=== PATIENT | female | born 1970 | race Caucasian/White ===

== ENCOUNTER 2020-01-09 09:40 | Outpatient (REF) | payer MEDICAID, SELFPAY | END 2020-01-09 09:41 | disposition home or self-care (01) | LOC: HO.LAB 09:40 | PROVIDERS: Visit Provider Internal Medicine | DX: Z20.828 Contact with and (suspected) exposure to other viral communicable diseases (principal) | CPT/HCPCS: U0003 ==

== ENCOUNTER 2020-04-03 17:02 | Outpatient (REF) | payer OTHER, SELFPAY | END 2020-04-03 17:03 | disposition home or self-care (01) | LOC: HO.LAB 17:02 | PROVIDERS: Visit Provider Internal Medicine | DX: Z20.822 Contact with and (suspected) exposure to COVID-19 (principal) | CPT/HCPCS: 36415; C9803; U0003 ==

== ENCOUNTER 2020-07-16 12:00 | Outpatient (REF) | payer OTHER, SELFPAY ==
[2020-07-16 12:19] LABS: COVID-19 Test Negative (Negative)
== END 2020-07-16 12:01 | disposition home or self-care (01) ==
LOC: HO.LAB 12:00
PROVIDERS: Visit Provider Internal Medicine
DX: Z20.822 Contact with and (suspected) exposure to COVID-19 (principal)
CPT/HCPCS: 36415; 87635; C9803

== ENCOUNTER 2020-08-08 13:23 | Emergency (ER) | payer SELFPAY ==
[2020-08-08 15:05] VITALS: BP 133/73; PULSE 71; RESP 16; TEMP 36.8; O2SAT 98; BMI 33.3
--- NOTE | 2020-08-08 15:16 | PC.NURSE ---
CALLED, NOT IN [facility].
--- NOTE | 2020-08-08 15:36 | ED_ITS ---
HPI - General Adult General Chief complaint: Skin/Abscess/Foreign Body Stated complaint: BREAST PAIN Time Seen by Provider: 08/08/20 15:15 Source: patient Limitations: no limitations History of Present Illness HPI narrative: Patient states her left breast increasing tenderness and pain above her left nipple. Patient states about a month and half ago she pressed on the same year and got pus out at that time. Patient states the pain is about 4/10 at this time. No discharge at this time. Patient states approximately about a year ago she felt a lump in her breast that was different had a mammogram that was negative. Patient has had history of tobacco use for the vaccinated for COVID-19 no other complaints at this time. No history of diabetes Related Data Previous Rx's Medication Instructions Recorded cephalexin 500 mg PO TID #30 cap 08/08/20 minocycline 100 mg PO BID #20 cap 08/08/20 Allergies Allergy/AdvReac Type Severity Reaction Status Date / Time No Known Allergies Allergy Verified 08/08/20 15:05 Review of Systems Constitutional: Constitutional: Denies chills, Denies fever(s) and Denies night sweats ENT: Denies sore throat Cardiovascular: Cardiovascular: Denies chest pain and Denies dyspnea Respiratory: Respiratory: Denies dyspnea Gastrointestinal: Gastrointestinal: Denies nausea and Denies vomiting Musculoskeletal: Musculoskeletal: Reports no additional musculoskeletal complaints Integumentary/Breasts: Skin/Breast: Reports swelling Comments: Left breast pain Neurologic: Reports system reviewed and no additional complaints, except as documented Endocrine: Endocrine: Reports no additional endocrine complaints Allergic/Immunologic: Allergic/Immunologic: Denies urticaria PMFSH Past Medical History Attestation statement: The following information was validated with the patient. Medical History Patient denies medical problems Social History Social History Advance Directives: Yes Advance Directives Information Provided: Yes Advance Directives on File: No Patient : No Physical Exam Vital Signs: Vital Signs: Last Vital Signs Temp 98.3 F 08/08/20 15:05 Pulse 71 08/08/20 15:05 Resp 16 08/08/20 15:05 BP 133/73 08/08/20 15:05 Pulse Ox 98 08/08/20 15:05 Body Mass Index 33.3 vital signs have been reviewed as normal and appeared to be correct. Blood pressure normal. Heart rate normal. Respiration rate normal. Temperature normal. Oxygen saturation normal. Appearance: Alert. Oriented X3. No acute distress. Head: Normal external exam. Normocephalic. Atraumatic. No Steward signs noted. No raccoon eyes noted Eyes: PERRLA. EOMI. ENT: Pharynx normal. Uvula midline. CVS: Heart regular rate and rhythm no murmurs and rubs Respiratory: Breath sounds are clear to auscultation bilaterally. No accessory muscle use noted. Abdomen: Soft nontender no rebound or guarding positive bowel sounds Skin: Left breast is tender slightly indurated above the left nipple. No pur ulent discharge at this time Extremities: No lower extremity edema. Extremities exhibit normal range of motion. Patient is ambulatory Neuro: Oriented X 3. No motor deficit. No sensory deficit. Course Course Course Narrative: Differential diagnosis Left breast non lactate mastitis Left breast abscess Cellulitis Left breast pain Symptoms consistent with mastitis versus cellulitis or abscess will treat with antibiotics at this time Case discussed with Dr. Wilde will start on antibiotics warm compresses follow- up with surgeon would not I and D at this time Discharge Plan Discharge Clinical Impression: Cellulitis, Mastitis Patient Disposition: Home, Self-Care Instructions: Mastitis (ED) Additional Instructions: Warm compresses 2 to 3 times a day Antibiotics as directed Call surgeon for follow-up Prescriptions: New minocycline 100 mg capsule 100 mg PO BID Qty: 20 RF: 0 cephalexin 500 mg capsule 500 mg PO TID Qty: 30 RF: 0 Referrals: Kandice Keating MD [Physician] - 2 days
== END 2020-08-08 16:02 | disposition home or self-care (01) ==
PROVIDERS: Emergency Provider Emergency Medicine
DX: N61.0 Mastitis without abscess (principal); N64.4 Mastodynia; Z79.899 Other long term (current) drug therapy
CPT/HCPCS: 99283

== ENCOUNTER 2021-04-14 09:57 | Outpatient (REF) | payer MEDICAID, SELFPAY ==
--- NOTE | ~2021-04-14 | MM_ITS ---
EXAMINATION: MM DIAGNOSTIC DIGITAL BREAST TOMOSYNTHESIS, BILATERAL US DIAGNOSTIC ULTRASOUND BREAST, LEFT CLINICAL INFORMATION: Left breast infection medial periareolar region with erythema. Patient on day 6 antibiotics, 10 day course. No known family history breast cancer. The lifetime risk of breast cancer based on the Tyrer-Cuzick Model is 8%. COMPARISON: Mammography: 04/14/2021, 08/11/2018 (diagnostic baseline); bilateral targeted breast ultrasound 08/11/2018. TECHNIQUE: Digital breast tomosynthesis is performed in both the craniocaudal and mediolateral oblique views along with computer-aided detection (CAD). Synthesized 2D images are generated from the tomosynthesis. Additional views are obtained: Left CC, right MLO. Ultrasound left breast is targeted to the area of clinical concern anterior o'clock through 12:00 position. Grayscale imaging and color Doppler are performed without and with harmonics. FINDINGS: There are scattered areas of fibroglandular density (ACR BI-RADS breast composition Category b). The right breast is unremarkable. There is no interval mass or architectural abnormality or abnormal calcifications. Intramammary node is again seen mid upper outer quadrant similar to prior imaging. The left breast has smooth dermal thickening in the area of symptoms medial periareolar region. There is no duct ectasia or mass or gas tracking in the soft tissues. No abnormal calcifications. The bilateral axilla are unremarkable. Ultrasound left breast demonstrates an intradermal abscess at site of erythema medial periareolar breast with overall dimensions 0.6 cm thickness by 3.4 x 3.1 cm. There is a 0.5 cm projection from the deep dermis pointing towards the breast. Otherwise, no injury parenchymal abscess. There is hyperemia around the intradermal collection with smooth skin thickening. Results are discussed with the patient at time of visit. Patient notes improved symptoms while on antibiotics, currently date 6 of a 10 day course. She has upcoming appointment with surgeon for follow-up. MM/MM tomosynthesis diagnostic BI IMPRESSION: 1. Left: Intradermal abscess medial periareolar position corresponding to the site of erythema measuring 0.6 cm thickness by 3.4 x 3.1 cm. 2. Right: No mammographic evidence of malignancy. ASSESSMENT: BI-RADS 3: Probably Benign RECOMMENDATION: 1. Patient should continue with antibiotics as planned. 2. Patient to follow-up with her surgical consult appointment. 3. Patient should be managed based on the clinical impression. Follow-up ultrasound may be considered if symptoms are persistent or increasing. Today's ultrasound may serve as baseline for follow-up as needed. This patient's information was entered into a reminder system with a target due date for their next mammogram.
== END 2021-04-14 09:58 | disposition home or self-care (01) ==
LOC: HO.MAMMO 09:57
PROVIDERS: Visit Provider Family Medicine
DX: N63.24 Unspecified lump in the left breast, lower inner quadrant (principal); R92.8 Other abnormal and inconclusive findings on diagnostic imaging of breast
CPT/HCPCS: 76642; 77062; 77066

== ENCOUNTER → 2021-04-25 09:01 | Outpatient (BNVA) | payer MEDICAID, SELFPAY | PROVIDERS: PCP Internal Medicine; Referring Provider Internal Medicine; Visit Provider Surgery | DX: N61.0 Mastitis without abscess (principal) | CPT/HCPCS: 99202 ==

== ENCOUNTER 2021-05-15 11:43 | Outpatient (REF) | payer MEDICAID, SELFPAY ==
--- NOTE | ~2021-05-15 | XR_ITS ---
EXAMINATION: XR SHOULDER, RIGHT CLINICAL INFORMATION: Right shoulder pain. COMPARISON: None TECHNIQUE: AP external rotation, Grashey, scapular Y, and axillary views of the right shoulder. FINDINGS: Small acromioclavicular marginal osteophytes. Small lateral subacromial spurs. No glenohumeral joint space narrowing or marginal osteophytes. No osseous erosion. No fracture or dislocation. XR/XR shoulder RT min 2V IMPRESSION: Mild acromioclavicular osteoarthritis with small lateral subacromial spurs.
== END 2021-05-15 11:44 | disposition home or self-care (01) ==
LOC: HO.XRAY 11:43
PROVIDERS: PCP Internal Medicine; Visit Provider Internal Medicine
DX: M25.511 Pain in right shoulder (principal)
CPT/HCPCS: 73030

== ENCOUNTER → 2021-06-19 10:54 | Outpatient (BNVA) | payer MEDICAID, SELFPAY | PROVIDERS: PCP Internal Medicine; Visit Provider Physician Assistant | DX: M77.8 Other enthesopathies, not elsewhere classified (principal) | CPT/HCPCS: 99202 ==

== ENCOUNTER → 2021-07-29 09:51 | Outpatient (BNVA) | payer MEDICAID, SELFPAY | PROVIDERS: PCP Internal Medicine; Visit Provider Surgery | DX: N64.89 Other specified disorders of breast (principal); N61.0 Mastitis without abscess | CPT/HCPCS: 99212 ==

== ENCOUNTER 2021-08-18 09:20 | Day surgery (SDC) | payer MEDICAID, SELFPAY ==
[2021-08-12 10:26] VITALS: BMI 38.6
--- NOTE | 2021-08-15 09:20 | HO.ANESPROP2 ---
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 (Acute) Past Medical History Medical History Patient denies medical problems Surgical History Surgical History History of tubal ligation Surgical history unknown Social History Social History Alcohol intake: current Alcohol intake frequency: holidays/special occasions only Patient Tobacco Use Status: Current everyday Tobacco user Tobacco use type: Cigarette Smoked in Last 30 Days: Yes Patient Interested in Nicotine Replacement: No Use of substances other than those prescribed or required for medical reasons: Yes Substance Use Type Other:: pt reports cigarette and marijuana hs Substance Use Frequency: Occasionally Are you DNR?: No Advance Directives: No Advance Directives Information Provided: Yes Recently lost weight without trying: No Eating poorly because of decreased appetite: No Nutrition Risks: No Nutritional Risk Patient : No FDLMP: currently menstruati Current occupational status: employed Current occupation: right handed Meds Allergies Allergy/AdvReac Type Severity Reaction Status Date / Time No Known Allergies Allergy Verified 08/18/21 09:43 Exam Exam Date and Time: August 15, 2021 0920 Height,Weight and Vital Signs: Height 5 ft 5 in Weight 105.233 kg Assessment and Plan Assessment Anesthesia Assessment: Chart Reviewed Documented by User: Ramya Cruz MD 08/18/21 11:39 PMFSH Active Problems Active Problems: All Active Problems (Updated 07/29/21 @ 10:23 by Rei Johnson MD) Mastitis in female (Acute) Right shoulder tendonitis (Acute) 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 (Acute) pending sleep study for JOSEPHINE smoker Past Medical History Medical History Patient denies medical problems Surgical History Surgical History History of tubal ligation Surgical history unknown History of Problems with Anesthesia: No Social History Social History Alcohol intake: current Alcohol intake frequency: holidays/special occasions only Patient Tobacco Use Status: Current everyday Tobacco user Tobacco use type: Cigarette Smoked in Last 30 Days: Yes Patient Interested in Nicotine Replacement: No Use of substances other than those prescribed or required for medical reasons: Yes Substance Use Type Other:: pt reports cigarette and marijuana hs Substance Use Frequency: Occasionally Are you DNR?: No Advance Directives: No Advance Directives Information Provided: Yes Recently lost weight without trying: No Eating poorly because of decreased appetite: No Nutrition Risks: No Nutritional Risk Patient : No FDLMP: currently menstruati Current occupational status: employed Current occupation: right handed Meds Allergies Allergy/AdvReac Type Severity Reaction Status Date / Time No Known Allergies Allergy Verified 08/18/21 09:43 Exam Airway Mallampati Class: III TM Dist: >3cm Neck ROM: Full Loose/Missing/Broken Teeth: No Heart: RRR Lungs: CTA Assessment and Plan Assessment Anesthesia Assessment: Anesthesia Plan Discussed Final Anesthetic Review History of Problems with Anesthesia: No NPO: Yes ASA Class: III Final Preanesthetic Review: Meds/Allgs Chart Reviewed, Consent Obtained/Reviewed and Anes Risks/Benef Reviewed Patient Risk: Intermediate Procedure Risk: Low Anesthetic Plan Anesthetic Plan: GA Disposition: Standard PACU
[2021-08-18] VITALS (8 sets, daily range): BP systolic 103–148; BP diastolic 62–96; PULSE 71–87; RESP 16–18; TEMP 36.1–36.2; O2SAT 93–97; BMI 38.2
[2021-08-18 09:47] LABS: UPreg QC Valid YES; Urine Pregnancy NEGATIVE (NEGATIVE)
[2021-08-18] MEDS: Lactated Ringers 1,000 ML 100 ML IVCONT (10:04)
[2021-08-18] MEDS: Albuterol Sulfate (0.083%) 2.5 MG/3 ML VIAL.NEB INHALE (10:06)
--- NOTE | 2021-08-18 10:46 | MHC.SHP ---
Pre-Procedural Eval Section A Date of Service: 08/18/21 The patient is an INPATIENT: No Changes since office visit: Yes Patient answered all questions; No Cold of Flu in the past 2 weeks, No New Medical Problems and No Changes in Medication The History & Physical has been completed within 30 days and I have reviewed it.: Yes Section B Chief Complaint: breast lump Allergies: Allergies Allergy/AdvReac Type Severity Reaction Status Date / Time No Known Allergies Allergy Verified 08/18/21 09:43 Plan Diagnosis/Plan: Unchanged I have reviewed the history and physical and performed a pertinent physical examination on my patient. No changes have occurred unless specified.
--- NOTE | 2021-08-18 11:18 | W.PM.OPN ---
Operative Note Operative Note Date of Service: 08/18/21 Narrative: Preoperative diagnosis:Left breast mass Postoperative diagnosis:same Procedure:Left breast lumpectomy Surgeon: Rei Johnson MD [employer] Operator: Yasmine Barrera PA-C, VIDHYA Brown Anesthesia: General LMA Indications for procedure: 50-year-old female patient with persistent and recurring infections involving the left nipple areolar complex. Patient has an area in the 10 o'clock position which produces purulence discharge. There is a palpable lump radiating from the nipple to the 10 o'clock position below the areola suggestive of a lactiferous duct fistula. 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 After administering general anesthesia patient's left breast was prepped with ChloraPrep and draped in a sterile fashion. A surgical time-out was called the consent confirmed. Patient received preoperative antibiotics and Venodyne boots were in place. Local anesthesia consisting of 0.25% Sensorcaine was then infiltrated around the nipple-areolar complex at the 9 through 12 o'clock position. An elliptical incision oriented around the areola was then created with scalpel. This was carried out through subcutaneous tissue. Superior and inferior skin flaps were then created. The lesion was then excised off the nipple-areolar complex using a scalpel. Dissection was continued below the fistula in the subcutaneous tissue and breast tissue using electrocautery. Lesion was then dissected up to the undersurface of the nipple. This was then dissected with a hemostat divided and ligated with a 3-0 Polysorb suture. The remainder of the specimen was then excised using electrocautery. This was sent to pathology for further examination. Margins were marked with a long suture on the lateral, nipple margin. Short suture was placed in the superior margin and a loop suture was placed on the anterior margin. The wounds were then irrigated with saline solution and suctioned dry. Wounds were checked for hemostasis using electrocautery. Dermis was then reapproximated using interrupted 3-0 Polysorb sutures. Skin was closed using a running subcuticular 4-0 Polysorb suture. Steri-Strips, 2 x 2 gauze, and Tegaderm were then applied. Patient tolerated the procedure well. Sponge, instrument, and needle counts reported as correct. The patient was transferred to PACU in stable condition.
[2021-08-18] MEDS: Acetaminophen 325 MG TABLET 650 MG PO (13:57)
[2021-08-18] MEDS: oxyCODONE HCl Immed Release 5 MG TABLET PO (13:58)
== END 2021-08-18 14:15 | disposition home or self-care (01) ==
PROVIDERS: Nurse Practitioner; PCP Internal Medicine; Visit Provider Surgery
PROC: (CPT 19301; principal; 2021-08-18 10:40)
DX: N61.1 Abscess of the breast and nipple (principal); N64.0 Fissure and fistula of nipple; Z98.51 Tubal ligation status; F17.210 Nicotine dependence, cigarettes, uncomplicated
CPT/HCPCS: 19301; 81025; 88307; 94640; J0690; J2250; J2795; J3010

== ENCOUNTER → 2021-12-02 09:54 | Outpatient (BNVA) | payer MEDICAID, SELFPAY | PROVIDERS: PCP Internal Medicine; Visit Provider Surgery | DX: N61.0 Mastitis without abscess (principal); N64.89 Other specified disorders of breast | CPT/HCPCS: 99212 ==

== ENCOUNTER 2022-03-17 11:23 | Inpatient (IN) | payer MEDICAID, SELFPAY ==
[2022-03-17] VITALS (8 sets, daily range): BP systolic 119–155; BP diastolic 61–81; PULSE 72–106; RESP 16–22; TEMP 36.2–37; O2SAT 84–95; BMI 37.4
--- NOTE | ~2022-03-17 | CT_ITS ---
EXAMINATION: CT ANGIOGRAM OF THE CHEST WITH AND WITHOUT CONTRAST (CT PULMONARY ANGIOGRAM FOR PE) CLINICAL INFORMATION: Reason for Exam hypoxia, elevated ddimer COMPARISON: Chest radiograph earlier today TECHNIQUE: Prior to contrast administration, noncontrast localization images were obtained. Subsequently, multidetector volumetric imaging was performed from the thoracic inlet to below the diaphragms following the administration of 65 mL Omnipaque 350 intravenous contrast. No contrast reaction reported Sagittal, coronal, and MIP oblique sagittal reformatted images were obtained on the CT workstation, uploaded to PACS, and reviewed. This CT examination was performed using dose optimization techniques as appropriate, variously including the following: *Automated exposure control *Adjustment of mA and/or kV according to patient size (this includes techniques or standardized protocols for targeted exams where dose is matched to indication/reason for exam; i.e. extremities or head) *Use of iterative reconstruction technique Total exam dose-length product 549 mGy-cm FINDINGS: QUALITY OF STUDY/CONTRAST BOLUS: Suboptimal. The bolus is poor and there is marked motion artifact especially at the lung bases making diagnosis extremely difficult PULMONARY ARTERIES: No central or large proximal pulmonary emboli. Distal vasculature could not be adequately evaluated THORACIC AORTA: No aneurysm or dissection. LUNG: Multifocal patchy peripheral infiltrates are present, some groundglass. PLEURA: No pleural effusion or pneumothorax. MEDIASTINUM: Mild cardiac enlargement. No pericardial effusion. Prominent mediastinal and hilar lymph nodes, the largest measuring 1.2 cm in short axis dimension but no gross hilar or mediastinal lymphadenopathy. No evidence of septal bowing or right heart strain. CHEST WALL/AXILLA: No axillary or internal mammary lymphadenopathy. OSSEOUS STRUCTURES: No acute or suspicious osseous abnormality. UPPER ABDOMEN: Unremarkable. No reflux of contrast into the hepatic veins to suggest elevated right heart pressures. CT/CT angio chest PE protocol IMPRESSION: 1. No central or large proximal pulmonary emboli are seen. 2. Multifocal peripheral patchy infiltrates which can be seen with Covid 19 disease. VTE: indeterminate.
--- NOTE | ~2022-03-17 | XR_ITS ---
EXAMINATION: XR CHEST CLINICAL INFORMATION: Shortness of breath COMPARISON: None TECHNIQUE: Frontal view of the chest was obtained. FINDINGS: No significant abnormality is noted involving the heart, lungs, mediastinum, bony thorax or soft tissues. XR/XR chest 1V IMPRESSION: Unremarkable examination.
--- NOTE | 2022-03-17 11:26 | ED.SOB ---
HPI - SOB/Dyspnea General Chief Complaint: Upper Respiratory Symptoms Stated Complaint: SOB Time Seen by Provider: 03/17/22 11:30 Source: patient Mode of arrival: ambulatory Limitations: no limitations History of Present Illness HPI Narrative: 51 yo female with history of obesity, active smoker who presents to the ER with worsening SOB for the last 4 days. She states since the weekend she has had productive cough, fevers and generally not feeling well. Last night it got acutely worse and she had a hard time sleeping. She went to [facility] as a walk in where she was found to be hypoxic into the 70s per her report. They placed her on O2 and gave her steroids. She had a negative COVID test. She was encouraged to come to the ER via EMS but she left against medical advise and drove to the ER. Patient denies any known lung pathology, she is not on any inhalers at home. She states she has never had PFTs. She has been a long-time smoker. MD elicited complaint: shortness of breath and cough Onset (ago): day(s) (4) Context: recent illness Timing: progressively worsening Severity: moderate Associated symptoms: fever, cough and sputum production Treatment prior to arrival: oxygen and other (prednisone) Related Data Home oxygen amount: none Home Medications Medication Instructions Recorded Confirmed metformin 500 mg tablet 1 tab PO BID 03/17/22 03/17/22 minocycline 100 mg capsule 1 cap PO Q12H 03/17/22 03/17/22 Allergies Allergy/AdvReac Type Severity Reaction Status Date / Time No Known Allergies Allergy Verified 12/02/21 10:09 Review of Systems Review of Systems: Yes all other systems are reviewed and are negative PMFSH Past Medical History Medical History Patient denies medical problems Surgical History History of lumpectomy of left breast (08/18/21) History of tubal ligation Surgical history unknown Social History Social History Alcohol intake: current Alcohol intake frequency: holidays/special occasions only Patient Tobacco Use Status: Current everyday Tobacco user Tobacco use type: Cigarette Smoked in Last 30 Days: Yes Advance Directives: No Current occupational status: employed Current occupation: right handed Physical Exam Vital Signs: Vital Signs: Last Vital Signs Temp 98 F 03/17/22 11:25 Pulse 93 03/17/22 13:07 Resp 16 03/17/22 13:07 BP 119/61 03/17/22 11:53 Pulse Ox 84 L 03/17/22 11:53 O2 Del Method 03/17/22 11:53 O2 Flow Rate 4 03/17/22 11:53 BMI result Body Mass Index 37.4 Appearance: Alert. Oriented X3. Mild acute respiratory distress. Eyes: Pupils equal, round and reactive to light. ENT: Pharynx normal. Neck: Normal inspection. Neck supple. CVS: Tachycardic low 100s, regular rhythm Pulses normal. Respiratory: Mild respiratory distress. Breath sounds diminished at bilateral bases with slight end expiratory wheeze in the RML Abdomen: Obese, Soft and nontender. +BS x4 Skin: Skin warm and dry. Normal skin color. Normal skin turgor. No rashes. Extremities: No lower extremity edema. Negative Kailyn's sign, no calf tenderness or erythema Neuro: Oriented X 3. No motor deficit. No sensory deficit. Nonfocal Course Course Course Narrative: 51 yo female who is an active smoker with no known lung disease presents to the ER with worsening SOB, productive cough, fevers and not feeling well for the last 4 days. Seen at [facility] where she was hypoxic into the 70s, she was placed on O2 and given prednisone. She was encouraged to come to the ER via EMS but left against medical advise to come to the hospital to get an XR. Hypoxic 81-85% in triage. Slight expiratory wheeze in right base. XR and labs ordered. Brought right back to treatment room. Reevaluation(s) Reevaluation #1: Patient requiring 4 L of oxygen, sats 94%. She remains afebrile and hemodynamically stable. Her labs returning with a WBC 12.9. H&H is stable. No other metabolic derangements on her lab workup. EKG without STEMI. Chest x-ray reviewed, she has blunting of the bilateral costophrenic angles and hazy opacities bilaterally. Will cover with azithromycin and Rocephin for possible community-acquired pneumonia. Reevaluation #2: Viral swabs are is pending. Procalcitonin ordered as well as lactic acid and blood cultures. Will plan for admission. She remains on 4 L nasal cannula. Patient agrees with plan. Medications Administered Discontinued Medications Generic Name Dose Route Start Last Admin Trade Name Iona PRN Reason Stop Dose Admin Albuterol Sulfate 5 mg 03/17/22 13:03 03/17/22 13:09 Albuterol Sulfate (0.083%) 2.5 Mg/3 Ml Vial.Neb INHALE 03/17/22 13:04 Not Given ONCE ONE Sodium Chloride 1,000 mls @ 999 mls/hr 03/17/22 11:45 03/17/22 11:52 Ns IVCONT 03/17/22 12:45 999 mls/hr .Q1H1M YURIDIA Administration Ceftriaxone Sodium 1 gm/ 50 mls @ 100 mls/hr 03/17/22 12:26 03/17/22 13:23 Sodium Chloride IV 03/17/22 12:55 Infused ONCE ONE Infusion Azithromycin 500 mg/ Sodium 250 mls @ 125 mls/hr 03/17/22 12:26 03/17/22 13:23 Chloride IV 03/17/22 14:25 125 mls/hr ONCE ONE Administration Methylprednisolone Sodium Succinate 40 mg 03/17/22 12:26 03/17/22 12:40 Methylprednisolone Sod Succ 40 Mg/Ml Vial IVPUSH 03/17/22 12:27 40 mg ONCE ONE Administration Medical Decision Making Medical Decision Making [facility] Narrative: 51-year-old long-time cigarette smoker who presents to the ER for evaluation of worsening shortness of breath and productive cough. She rides to the ER hypoxic. Concern for possible viral process versus bacterial pneumonia. She has diminished lung sounds bibasilarly. Chest x-ray, labs, EKG ordered. Doubt PE or ACS given her URI symptoms. Differential Diagnosis Differential Diagnoses: The differential diagnosis associated with the presentation includes Acute bacterial pneumonia, viral pneumonia, bronchitis, COPD exacerbation (most likely has undiagnosed COPD given history), less likely PE or ACS Admission/Observation Consideration of admission/observation: Escalation of care including admission/observation considered Patient continues require supplemental oxygen, will require admission to the hospital for further management. Consult Healthcare Provider Management of the patient was discussed with: Hospitalist Lab Data [facility] Lab Attestation statement: I reviewed the patient's lab results. Independently reviewed, mild leukocytosis, normal H&H, platelets. No major metabolic derangements on her metabolic panel. 03/17/22 11:49 03/17/22 11:49 Labs: Lab Results 03/17/22 03/17/22 03/17/22 Range/Units 11:49 11:49 11:49 WBC 12.9 H (4.8-10.8) X10*3/uL RBC 5.22 (4.20-5.50) X10*6/uL Hgb 14.9 (12.0-16.0) g/dl Hct 46.0 (37.0-47.0) % MCV 88.1 (80.0-98.0) fL MCH 28.5 (27.0-33.0) pg MCHC 32.4 (31.0-35.0) g/dl RDW 13.4 (11.0-16.0) % Plt Count 193 (160-400) X10*3/uL MPV 11.6 (9.4-12.3) fL Immature Gran % (Auto) 0.3 (0.0-0.4) % Neut % (Auto) 80.3 H (45-73) % Lymph % (Auto) 9.7 L (20-40) % [place] % (Auto) 3.9 (2-11) % Eos % (Auto) 5.6 H (0-4) % Baso % (Auto) 0.2 (0-2) % Lymph # (Auto) 1.3 (1.2-4.9) X10*3/uL [place] # (Auto) 0.5 (0.1-1.2) X10*3/uL Eos # (Auto) 0.7 H (0.0-0.4) X10*3/uL Baso # (Auto) 0.0 (0.0-0.2) X10*3/uL Abs Immat Gran (auto) 0.04 H (0.00-0.03) X10*3/uL Absolute Neuts (auto) 10.4 H (2.0-8.3) x10*3/uL Absolute Nucleated RBC 0.000 (0.0-0.012) X10*3/uL Nucleated RBC % (auto) 0.0 (0.0-0.2) /100WBC Sodium 141 (135-145) mmol/L Potassium 4.5 (3.3-5.1) mmol/L Chloride 107 (96-108) mmol/L Carbon Dioxide 25 (22-29) mmol/L Anion Gap 14 (12-20) BUN 21 H (9-16) mg/dL Creatinine 0.78 (0.5-1.4) mg/dL Estim Creat Clear Calc 103.3 Estimated GFR > 60 Random Glucose 123 H (60-115) mg/dL Lactic Acid (0.5-2.0) mmol/L Calcium 9.4 (8.4-10.2) mg/dL Magnesium 1.6 (1.6-2.6) mg/dL Total Bilirubin 0.5 (0.0-1.0) mg/dL Direct Bilirubin 0.2 (0.0-0.5) mg/dL AST 11 (5-31) U/L ALT 14 (0-31) U/L Alkaline Phosphatase 93 (39-117) U/L B-Natriuretic Peptide (<100) pg/mL Total Protein 7.4 (6.5-8.0) g/dL Albumin 4.1 (3.5-5.0) g/dL Procalcitonin ng/mL Influenza Type A (PCR) NEGATIVE (Negative) Influenza Type B (PCR) NEGATIVE (Negative) RSV RNA Qual (PCR) NEGATIVE (Negative) SARS-CoV-2 RNA (RT-PCR) NEGATIVE (Negative) 03/17/22 03/17/22 03/17/22 Range/Units 11:49 11:49 12:36 WBC (4.8-10.8) X10*3/uL RBC (4.20-5.50) X10*6/uL Hgb (12.0-16.0) g/dl Hct (37.0-47.0) % MCV (80.0-98.0) fL MCH (27.0-33.0) pg MCHC (31.0-35.0) g/dl RDW (11.0-16.0) % Plt Count (160-400) X10*3/uL MPV (9.4-12.3) fL Immature Gran % (Auto) (0.0-0.4) % Neut % (Auto) (45-73) % Lymph % (Auto) (20-40) % [place] % (Auto) (2-11) % Eos % (Auto) (0-4) % Baso % (Auto) (0-2) % Lymph # (Auto) (1.2-4.9) X10*3/uL [place] # (Auto) (0.1-1.2) X10*3/uL Eos # (Auto) (0.0-0.4) X10*3/uL Baso # (Auto) (0.0-0.2) X10*3/uL Abs Immat Gran (auto) (0.00-0.03) X10*3/uL Absolute Neuts (auto) (2.0-8.3) x10*3/uL Absolute Nucleated RBC (0.0-0.012) X10*3/uL Nucleated RBC % (auto) (0.0-0.2) /100WBC Sodium (135-145) mmol/L Potassium (3.3-5.1) mmol/L Chloride (96-108) mmol/L Carbon Dioxide (22-29) mmol/L Anion Gap (12-20) BUN (9-16) mg/dL Creatinine (0.5-1.4) mg/dL Estim Creat Clear Calc Estimated GFR Random Glucose (60-115) mg/dL Lactic Acid 0.7 (0.5-2.0) mmol/L Calcium (8.4-10.2) mg/dL Magnesium (1.6-2.6) mg/dL Total Bilirubin (0.0-1.0) mg/dL Direct Bilirubin (0.0-0.5) mg/dL AST (5-31) U/L ALT (0-31) U/L Alkaline Phosphatase (39-117) U/L B-Natriuretic Peptide 90 (<100) pg/mL Total Protein (6.5-8.0) g/dL Albumin (3.5-5.0) g/dL Procalcitonin 0.08 ng/mL Influenza Type A (PCR) (Negative) Influenza Type B (PCR) (Negative) RSV RNA Qual (PCR) (Negative) SARS-CoV-2 RNA (RT-PCR) (Negative) Independent Interpretation I performed an independent interpretation of an: EKG and Plain X-Ray Interpretation: EKG - Normal sinus rhythm, ventricular rate 95 beats per minute, normal OK interval, T-wave inversion in lead 1, aVL, V6 no ST segment elevations or depressions CXR - bibasilar patchy opacity with blunting of costophrenic angles bilaterally Radiology Impression Discussion of test interpretation with radiology: I have reviewed the radiologist's reading. Radiologist Impression: FINDINGS: No significant abnormality is noted involving the heart, lungs, mediastinum, bony thorax or soft tissues. XR/XR chest 1V IMPRESSION: Unremarkable examination. inpendently reviewed - do not agree with the above reading External Record Review External record reviewed: Office record and Prior outpatient labs Tests considered The following testing was considered but not selected: CTA deferred for now Prescription Management I considered prescription management with: Antiviral and Antibiotic Critical Care Time Critical Care Time Critical Care Time: Yes Total Critical Care Time: 42 Attestation: I have personally provided critical care time exclusive of time spent on separately billable procedures. Time includes review of lab data, radiology results, discussion with consultants, and monitoring for potential decompensation. Intervention performed as documented. Discharge Plan Discharge Clinical Impression: Acute respiratory failure with hypoxia, Pneumonia Patient Disposition: Admitted As Inpatient
--- NOTE | 2022-03-17 11:27 | ECG_ITS ---
Test Reason : SOB Blood Pressure : / mmHG Vent. Rate : 095 BPM Atrial Rate : 095 BPM P-R Int : 146 ms QRS Dur : 082 ms QT Int : 370 ms P-R-T Axes : 066 108 113 degrees QTc Int : 464 ms Normal sinus rhythm Rightward axis Nonspecific T wave abnormality Abnormal ECG No previous ECGs available Referred By: Nichole Monzon Electronically Signed By:Bello Pope
[2022-03-17] MEDS: 0.9 % Sodium Chloride 1,000 ML 999 ML IVCONT (11:52)
[2022-03-17 11:54] LABS: MANUAL DIFF FLAG NO
[2022-03-17 11:55] LABS: Basophils Percent Auto 0.2 % (0-2); Eosinophils Absolute Auto 0.7 X10*3/uL (0.0-0.4); Eosinophils Percent Auto 5.6 % (0-4); Hemoglobin 14.9 g/dl (12.0-16.0); Imm Gran Abs Auto 0.04 X10*3/uL (0.00-0.03); Imm Gran Pct Auto 0.3 % (0.0-0.4); Lymphocytes Absolute Auto 1.3 X10*3/uL (1.2-4.9); Lymphocytes Percent Auto 9.7 % (20-40); Mean Corpuscular HGB Conc 32.4 g/dl (31.0-35.0); Mean Corpuscular Hemoglobin 28.5 pg (27.0-33.0); Mean Corpuscular Volume 88.1 fL (80.0-98.0); Mean Platelet Volume 11.6 fL (9.4-12.3); Monocytes Absolute Auto 0.5 X10*3/uL (0.1-1.2); Monocytes Percent Auto 3.9 % (2-11); Neutrophils Absolute Auto 10.4 x10*3/uL (2.0-8.3); Neutrophils Percent Auto 80.3 % (45-73); Platelet Count 193 X10*3/uL (160-400); Red Blood Count 5.22 X10*6/uL (4.20-5.50); Red Cell Distribution Width 13.4 % (11.0-16.0); White Blood Count 12.9 X10*3/uL (4.8-10.8)
--- NOTE | 2022-03-17 12:03 | PC.NURSE ---
Coming from urgent care for increasing shortness of breath. Found to be in the 80's on room air, placed on 4L nasal cannula now 95%. IV established, labs drawn and sent. Fluids infusing at this time. NSR on monitor and storage bin tender.
[2022-03-17 12:17] LABS: Alanine Aminotransferase 14 U/L (0-31); Albumin Level 4.1 g/dL (3.5-5.0); Alkaline Phosphatase 93 U/L (39-117); Anion Gap 14 (12-20); Aspartate Amino Transferase 11 U/L (5-31); Bilirubin Direct 0.2 mg/dL (0.0-0.5); Bilirubin Total 0.5 mg/dL (0.0-1.0); Blood Urea Nitrogen 21 mg/dL (9-16); Calcium 9.4 mg/dL (8.4-10.2); Carbon Dioxide 25 mmol/L (22-29); Chloride 107 mmol/L (96-108); Creatinine Clr Calc Pharmacy 103.3; Estimated Glomerular Filt Rate > 60; Glucose Random 123 mg/dL (60-115); Magnesium 1.6 mg/dL (1.6-2.6); Potassium 4.5 mmol/L (3.3-5.1); Sodium 141 mmol/L (135-145); Total Protein 7.4 g/dL (6.5-8.0)
[2022-03-17 12:22] LABS: B Type Natriuretic Peptide 90 pg/mL (<100)
[2022-03-17 12:33] LABS: Influenza A PCR NEGATIVE (Negative); Influenza B PCR NEGATIVE (Negative); Resp Syncy Virus RNA Qual PCR NEGATIVE (Negative); SARS COV2 PCR INHOUSE NEGATIVE (Negative)
[2022-03-17] MEDS: cefTRIAXone sodium 1 GM in 0.9 % Sodium Chloride 50 ML IV (12:40)
[2022-03-17] MEDS: methylPREDNISolone Sod Succ 40 MG/ML VIAL IVPUSH (12:40)
[2022-03-17 12:58] LABS: Lactic Acid 0.7 mmol/L (0.5-2.0)
--- NOTE | 2022-03-17 12:58 | PHA.MEDREC ---
Pharmacy Consult ? Medication Reconciliation Pharmacy has completed the medication reconciliation. PATIENT CONFIRMS POOR ADHERENCE. STARTED MINOCYCLINE RECENTLY AGAIN JESSICA
[2022-03-17] MEDS: Azithromycin 500 MG in 0.9 % Sodium Chloride 250 ML 125 MG IV (13:23)
[2022-03-17 13:44] LABS: Procalcitonin 0.08 ng/mL
--- NOTE | 2022-03-17 14:10 | PM.IMHP ---
History of Present Illness Date of Service: 03/17/22 Attending physician on admission: Kavin Bowen Chief Complaint: cough, sob, fever 51-year-old female with history of hidradenitis suppurative who is a current everyday smoker with at least 30 pack year history presented to the ED earlier today from [facility] for management of productive cough, subjective fevers, and shortness of breath with hypoxia noted at [facility] with oximetry in the low 70s. She states symptoms started about 4 days ago and worsened last night and this morning. At [facility], she was placed on 4 L supplemental O2 and given a dose of prednisone and transferred via EMS to the hospital. On arrival, patient afebrile, tachycardic to 105 RR 20, hypoxic to 85% on room air. She was placed on 2.5 L supplemental O2 with improvement in oximetry to 92-95%. Lab significant for leukocytosis of 12.9. Renal function, electrolyte levels normal. BNP 90, procalcitonin 0.08. Negative for influenza, RSV, COVID-19. CXR negative for acute cardiopulmoary abnormality. Treated empirically for suspected pneumonia with IV ceftriaxone, Zithromax, albuterol updraft, and 40 mg IV prednisolone. She denies any known history of COPD but feels she has been wheezing. Review of Systems Review of Systems: General: +fevers. No malaise, unintentional weight loss HEENT: No sore throat, nasal congestion, rhinorrhea, sinus pain, ear pain Cardiovascular: No chest pain, palpitations, or leg edema Respiratory: +sob, +cough, +wheezing GI: No abdominal pain, nausea, vomiting, diarrhea, constipation, melena, hematochezia : No dysuria, hematuria, increased urinary frequency, decreased urinary output MSK: No myalgia, back pain Neuro: No headaches, weakness, paresthesias Skin: No rashes or lesions [facility] Medical History (Updated 03/17/22 @ 16:04 by MARK Watters) Hidradenitis suppurativa Mastitis in female Patient denies medical problems Surgical History History of lumpectomy of left breast (08/18/21) History of tubal ligation Surgical history unknown Social History Household Members: None Housing: Apartment Do you presently have visiting nurse or other home services: No Alcohol intake: current Alcohol intake frequency: holidays/special occasions only Patient Tobacco Use Status: Current everyday Tobacco user Tobacco use type: Cigarette Cigarette Packs Per Day: 1 Cigarettes Per Day: 20.0 Years Smoked: 30 Smoked in Last 30 Days: Yes Patient Interested in Nicotine Replacement: Yes Patient Given Instructions on How to Stop Smoking: Yes Date Education Initiated: 03/17/22 Second Hand Smoke Exposure: No Use of substances other than those prescribed or required for medical reasons: Yes Substance Use Type: Marijuana Substance Use Frequency: Daily Last Used Substance: Just Prior to Admission Currently Displaying Signs/Symptoms of Drug Intoxication Withdrawal: No Any prior treatment program specific to substance use: No Have you been hit, kicked, punched, or otherwise hurt by someone within the past year? If so, by whom?: No Do you feel safe in your current relationship?: Yes Is there a partner from a previous relationship who is making you feel unsafe now?: No Are you made to feel afraid or neglected: No Jew Healthcare Practices: caodaism Advance Directives: No Do you have thoughts of harming others: None Do you have a plan to hurt others: No Plan Nutrition Risks: No Nutritional Risk Patient : No : No Poor oral hygiene: No Current occupational status: employed Current occupation: right handed Meds Allergies Allergy/AdvReac Type Severity Reaction Status Date / Time No Known Allergies Allergy Verified 12/02/21 10:09 Active Medications: Current Medications Azithromycin 500 mg/ Sodium (Chloride) 250 mls @ 125 mls/hr IV ONCE ONE Stop: 03/17/22 14:25 Last Admin: 03/17/22 13:23 Dose: 125 mls/hr Pharmacy Consult (Consult Rx Perform Med Rec) 1 each MISCELLANE ONCE PRN PRN Reason: Consult order Home Medications Medication Instructions Recorded Confirmed Last Taken Type metformin 500 mg tablet 1 tab PO BID 03/17/22 03/17/22 03/16/22 History minocycline 100 mg capsule 1 cap PO Q12H 03/17/22 03/17/22 03/16/22 History Physical Exam Vital Signs and Narrative: Vital Signs: Last Vital Signs Temp 98 F 03/17/22 11:25 Pulse 93 03/17/22 13:07 Resp 16 03/17/22 13:07 BP 119/61 03/17/22 11:53 Pulse Ox 84 L 03/17/22 11:53 O2 Del Method 03/17/22 11:53 O2 Flow Rate 4 03/17/22 11:53 BMI result Body Mass Index 37.4 Constitutional - Awake and Alert, No apparent distress Eyes - PERRLA, EOMI Cardiovascular - S1S2, RRR, No edema Respiratory - Normal lung expansion, Normal respiratory effort, No respiratory distress, CTA bilaterally Gastrointestinal - NT / ND; +BS; No rebound or guarding Extremities - no calf tenderness bilaterally, no swelling Skin - Warm/Dry Neurological - Alert & oriented x3 Psychological - Appropriate affect Results Labs 03/17/22 11:49 03/17/22 11:49 Labs: Laboratory Results - last 24 hr 03/17/22 03/17/22 03/17/22 11:49 11:49 11:49 MCV 88.1 MCH 28.5 MCHC 32.4 RDW 13.4 Plt Count 193 MPV 11.6 Immature Gran % (Auto) 0.3 Neut % (Auto) 80.3 H Lymph % (Auto) 9.7 L [place] % (Auto) 3.9 Eos % (Auto) 5.6 H Baso % (Auto) 0.2 Lymph # (Auto) 1.3 [place] # (Auto) 0.5 Eos # (Auto) 0.7 H Baso # (Auto) 0.0 Abs Immat Gran (auto) 0.04 H Absolute Neuts (auto) 10.4 H Absolute Nucleated RBC 0.000 Nucleated RBC % (auto) 0.0 Anion Gap 14 Estim Creat Clear Calc 103.3 Estimated GFR > 60 Random Glucose 123 H Lactic Acid Calcium 9.4 Magnesium 1.6 Total Bilirubin 0.5 Direct Bilirubin 0.2 AST 11 ALT 14 Alkaline Phosphatase 93 B-Natriuretic Peptide Total Protein 7.4 Albumin 4.1 Procalcitonin Influenza Type A (PCR) NEGATIVE Influenza Type B (PCR) NEGATIVE RSV RNA Qual (PCR) NEGATIVE SARS-CoV-2 RNA (RT-PCR) NEGATIVE 03/17/22 03/17/22 03/17/22 11:49 11:49 12:36 MCV MCH MCHC RDW Plt Count MPV Immature Gran % (Auto) Neut % (Auto) Lymph % (Auto) [place] % (Auto) Eos % (Auto) Baso % (Auto) Lymph # (Auto) [place] # (Auto) Eos # (Auto) Baso # (Auto) Abs Immat Gran (auto) Absolute Neuts (auto) Absolute Nucleated RBC Nucleated RBC % (auto) Anion Gap Estim Creat Clear Calc Estimated GFR Random Glucose Lactic Acid 0.7 Calcium Magnesium Total Bilirubin Direct Bilirubin AST ALT Alkaline Phosphatase B-Natriuretic Peptide 90 Total Protein Albumin Procalcitonin 0.08 Influenza Type A (PCR) Influenza Type B (PCR) RSV RNA Qual (PCR) SARS-CoV-2 RNA (RT-PCR) Assessment and Plan (1) Acute respiratory failure with hypoxia: Status: Acute Plan 51-year-old female with history of hidradenitis suppurativa who is a current everyday smoker with at least 30 pack year history admitted for acute hypoxemic respiratory failure. # acute hypoxemic respiratory failure- likely secondary to probable URI with suspected COPD exacerbation -continue supplemental O2 to maintain oximetry greater than 92%, titrate as tolerated -CXR negative for pneumonia -D-dimer elevated, CTA chest negative for PE -negative for COVID-19, influenza, RSV -complete respiratory panel pending #Sepsis- etiology viral or 2/2 COPD exacerbation -leukocytosis 12.9, tachypneic to 22, tachycardic to 105 -IV ceftriaxone and azithromycin given in the ED -CXR negative for pneumonia -CTA chest showing multifocal peripheral patchy infiltrate each often associated with COVID-19 disease. Initial COVID-19 test negative, full respiratory panel pending -treat COPD exacerbation as below -follow CBC, monitor vitals # upper respiratory infection -as above -symptomatic management # suspected COPD exacerbation -patient has never been formally diagnosed with COPD but has been noted to be wheezing with productive cough with greater than 30 pack-year history -IV Solu-Medrol 40 mg b.i.d. -DuoNebs q.4h -albuterol q.2h p.r.n. -continue azithromycin 500 mg to cover for any superimposed bacterial infection #Nicotine dependence ->30 pack year history -Patches for NRT -Counseled on cessation # hidradenitis suppurativa -Abx as above, hold minocycline -Continue metformin #Severe obesity -counseled on weight loss efforts DVT prophylaxis-Lovenox Full code Patient requires inpatient stay of at least 2 midnights for management of acute hypoxemic respiratory failure requiring supplemental O2 with further investigation into etiology. Time Spent With Patient Time: Total time managing care of this patient today ____ minutes. Quality Stroke Does the patient have a stroke diagnosis?: No VTE Prior VTE?: No VTE Risk Level:: Medical - moderate - high VTE Device Contraindication: Treatment Not Indicated VTE Drug Contraindication: N/A - Med Ordered
[2022-03-17] MEDS: Enoxaparin Sodium 40 MG/0.4 ML SYRINGE SUBCUT (16:05)
[2022-03-17] MEDS: 0.9 % Sodium Chloride Flush 3 ML SYRINGE IVFLUSH (16:05)
--- NOTE | 2022-03-17 16:16 | MHC.EDTECH ---
this pct assumed care of pt at this time ,pt vitals sign taken ,pt is resting in bed .
[2022-03-17 16:33] LABS: D Dimer High Sensitivity 583 NG/ML
[2022-03-17] MEDS: Benzonatate 100 MG CAPSULE PO ×2 (16:50→21:22)
[2022-03-17] MEDS: Nicotine 21 MG PATCH.TD24 TRANSDERMA (16:50)
--- NOTE | 2022-03-17 17:48 | PC.NURSE ---
Report called and given to RN. transport into bring patient to CT, will transport to floor when scan done.
[2022-03-17] MEDS: iohexoL 350 MG/ML 100 ML INFUS..BTL IV (18:07)
[2022-03-18] VITALS (13 sets, daily range): BP systolic 113–154; BP diastolic 58–92; PULSE 92–109; RESP 15–20; TEMP 36.1–36.6; O2SAT 92–99
[2022-03-18] MEDS: 0.9 % Sodium Chloride Flush 3 ML SYRINGE IVFLUSH ×3 (01:07→16:44)
[2022-03-18] MEDS: methylPREDNISolone Sod Succ 40 MG/ML VIAL IVPUSH ×2 (05:44→18:30)
[2022-03-18 06:27] LABS: MANUAL DIFF FLAG NO
[2022-03-18 06:31] LABS: Basophils Absolute Auto 0.1 X10*3/uL (0.0-0.2); Basophils Percent Auto 0.5 % (0-2); Eosinophils Absolute Auto 0.8 X10*3/uL (0.0-0.4); Eosinophils Percent Auto 6.8 % (0-4); Hematocrit 45.5 % (37.0-47.0); Hemoglobin 14.2 g/dl (12.0-16.0); Imm Gran Abs Auto 0.03 X10*3/uL (0.00-0.03); Imm Gran Pct Auto 0.2 % (0.0-0.4); Lymphocytes Absolute Auto 2.5 X10*3/uL (1.2-4.9); Mean Corpuscular HGB Conc 31.2 g/dl (31.0-35.0); Mean Corpuscular Hemoglobin 28.2 pg (27.0-33.0); Mean Corpuscular Volume 90.3 fL (80.0-98.0); Mean Platelet Volume 12.2 fL (9.4-12.3); Monocytes Absolute Auto 0.7 X10*3/uL (0.1-1.2); Monocytes Percent Auto 5.9 % (2-11); Neutrophils Absolute Auto 8.3 x10*3/uL (2.0-8.3); Neutrophils Percent Auto 66.6 % (45-73); Platelet Count 230 X10*3/uL (160-400); Red Blood Count 5.04 X10*6/uL (4.20-5.50); Red Cell Distribution Width 13.3 % (11.0-16.0); White Blood Count 12.4 X10*3/uL (4.8-10.8)
[2022-03-18 06:33] LABS: Appearance Urine Clear; Color Urine Yellow; Glucose Urine UA Negative (Negative); Leukocyte Esterase Urine Negative (Negative); Nitrite Urine Negative (Negative); Specific Gravity - Urine 1.025 (1.005-1.025); UMIC TRIGGER UACC YES; Urine Blood Negative (Negative); Urine Ketones Negative (Negative); Urine Protein 30 (1+) mg/dL (Neg-Trace)
[2022-03-18 06:38] LABS: Bacteria Urine None Seen (None Seen); Hyaline Casts Urine 0-2 /LPF (0-2); RBC Urine 0-2 /HPF (0-2); Squamous Epithelial Cell Urine 0-2 /HPF (0-2); WBC Urine 0-5 /HPF (0-5)
[2022-03-18 07:00] LABS: Anion Gap 16 (12-20); Blood Urea Nitrogen 14 mg/dL (9-16); Calcium 9.7 mg/dL (8.4-10.2); Carbon Dioxide 26 mmol/L (22-29); Chloride 107 mmol/L (96-108); Creatinine Clr Calc Pharmacy 111.9; Estimated Glomerular Filt Rate > 60; Glucose Random 114 mg/dL (60-115); Potassium 4.9 mmol/L (3.3-5.1); Sodium 144 mmol/L (135-145)
[2022-03-18 09:19] LABS: Adenovirus PCR Not Detected (Not Detect.); Bordetella parapertussis PCR Not Detected (Not Detect.); Bordetella pertussis PCR Not Detected (Not Detect.); Chlamydia pneumoniae PCR Not Detected (Not Detect.); Coronavirus 229E PCR Not Detected (Not Detect.)
[2022-03-18 09:20] LABS: Coronavirus HKU1 PCR Not Detected (Not Detect.); Coronavirus NL63 PCR Not Detected (Not Detect.); Coronavirus OC43 PCR Not Detected (Not Detect.); Human metapneumovirus PCR Not Detected (Not Detect.); Influenza A PCR Not Detected (Not Detect.); Influenza B PCR Not Detected (Not Detect.); Mycoplasma pneumoniae PCR Not Detected (Not Detect.); Parainfluenza 1 PCR Not Detected (Not Detect.); Parainfluenza 2 PCR Not Detected (Not Detect.); Parainfluenza 3 PCR Not Detected (Not Detect.); Parainfluenza 4 PCR Not Detected (Not Detect.); RSV PCR Not Detected (Not Detect.); Rhino/Enterovirus PCR Not Detected (Not Detect.); SARS-CoV-2 PCR Not Detected (Not Detect.)
[2022-03-18] MEDS: Benzonatate 100 MG CAPSULE PO ×3 (09:21→20:22)
[2022-03-18] MEDS: Nicotine 21 MG PATCH.TD24 TRANSDERMA (09:21)
--- NOTE | 2022-03-18 11:15 | MHC.CM.PN ---
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 ANTIC D/C PLAN: [place] SELF CARE [place] [facility] [place] [address] SELF HOME
--- NOTE | 2022-03-18 11:55 | HO.PM.IMPN ---
Subjective Subjective Date of Service: 03/18/22 Interval History: the patient was seen and evaluated this morning Laying in bed, feels comfortable SOB improving No reported other overnight events. Systemic review: No fever, chills or weakness No chest pain, palpitation dyspnea on exertion No abdominal pain, nausea or vomiting No urinary symptoms No reported rash Physical Exam Vital Signs: Vital Signs: Last Vital Signs Temp 96.9 F 03/18/22 08:00 Pulse 104 H 03/18/22 11:47 Resp 18 03/18/22 11:47 BP 154/77 H 03/18/22 08:00 Pulse Ox 95 03/18/22 10:12 O2 Del Method 03/18/22 10:12 O2 Flow Rate 2 03/18/22 08:00 BMI result Body Mass Index 37.4 Const: Other: Constitutional : Awake, interactive, not in distress Neck : Normal inspection, Supple Cardiovascular : RRR, no JVP, no lower extremity edema Respiratory : fair bilateral air entry, expiratory wheezes bilaterally Gastrointestinal: soft, lax, Normal bowel sounds, Non tender Skin : Warm, Dry Neurological : Alert & oriented x3, No focal deficit Objective Data Active Medications Acetaminophen (Acetaminophen 325 Mg Tablet) 650 mg PO Q6H PRN PRN Reason: Pain, Mild, fever Albuterol Sulfate (Albuterol Sulfate (0.083%) 2.5 Mg/3 Ml Vial.Neb) 2.5 mg INHALE Q2H PRN PRN Reason: Shortness of Breath/Wheezing Benzonatate (Benzonatate 100 Mg Capsule) 100 mg PO TID [facility] Last Admin: 03/18/22 09:21 Dose: 100 mg Documented By: TAVO Albuterol Sulfate 2.5 mg/ (Ipratropium [place] 0.5 mg) 0 mg INHALE RQ4H WHILE AWAKE [facility] Last Admin: 03/18/22 11:46 Dose: 1 each Documented By: DARIUS Docusate Sodium (Docusate Sodium 100 Mg Capsule) 100 mg PO DAILY PRN PRN Reason: Constipation Enoxaparin Sodium (Enoxaparin Sodium 40 Mg/0.4 Ml Syringe) 40 mg SUBCUT Q24H [facility] Last Admin: 03/17/22 16:05 Dose: 40 mg Documented By: ERNST Guaifenesin (Guaifenesin 200 Mg/10 Ml 10 Ml Liquid) 10 ml PO Q4H PRN PRN Reason: cough Azithromycin 500 mg/ Sodium (Chloride) 250 mls @ 125 mls/hr IV Q24H [facility] Stop: 03/19/22 14:59 Methylprednisolone Sodium Succinate (Methylprednisolone Sod Succ 40 Mg/Ml Vial) 40 mg IVPUSH Q12H [facility] Last Admin: 03/18/22 05:44 Dose: 40 mg Documented By: CHRIS Nicotine (Nicotine 21 Mg Patch.Td24) 21 mg TRANSDERMA DAILY [facility] Last Admin: 03/18/22 09:21 Dose: 21 mg Documented By: TAVO Ondansetron HCl (Ondansetron Hcl 4 Mg/2 Ml Vial) 4 mg IVPUSH Q8H PRN PRN Reason: Nausea and Vomiting Pharmacy Consult (Consult Rx Perform Med Rec) 1 each MISCELLANE ONCE PRN PRN Reason: Consult order Sodium Chloride (0.9 % Sodium Chloride Flush 3 Ml Syringe) 3 ml IVFLUSH QSHIFT [facility] Last Admin: 03/18/22 09:22 Dose: 3 ml Documented By: TAVO Labs 03/18/22 05:02 03/18/22 05:02 Labs: Laboratory Results - last 24 hr 03/17/22 03/17/22 03/17/22 11:49 11:49 11:49 MCV 88.1 MCH 28.5 MCHC 32.4 RDW 13.4 Plt Count 193 MPV 11.6 Immature Gran % (Auto) 0.3 Neut % (Auto) 80.3 H Lymph % (Auto) 9.7 L Gillespie % (Auto) 3.9 Eos % (Auto) 5.6 H Baso % (Auto) 0.2 Lymph # (Auto) 1.3 Gillespie # (Auto) 0.5 Eos # (Auto) 0.7 H Baso # (Auto) 0.0 Abs Immat Gran (auto) 0.04 H Absolute Neuts (auto) 10.4 H Absolute Nucleated RBC 0.000 Nucleated RBC % (auto) 0.0 D-Dimer High Sensitivty Anion Gap 14 Estim Creat Clear Calc 103.3 Estimated GFR > 60 Random Glucose 123 H Lactic Acid Calcium 9.4 Magnesium 1.6 Total Bilirubin 0.5 Direct Bilirubin 0.2 AST 11 ALT 14 Alkaline Phosphatase 93 B-Natriuretic Peptide Total Protein 7.4 Albumin 4.1 Procalcitonin Urine Color Urine Appearance Urine pH Ur Specific [place] Urine Protein Urine Glucose (UA) Urine Ketones Urine Blood Urine Nitrite Ur Leukocyte Esterase Urine RBC Urine WBC Ur Squamous Epith Cells Urine Bacteria Hyaline Casts Respiratory Panel Bennett Adenovirus (Rapid PCR) B.pert (TEM-PCR) B.parapertussis DNA PCR C. pneumoniae DNA (PCR) Coronavirus OC43 (PCR) Coronavirus HKU1 (PCR) Coronavirus 229E (PCR) Coronavirus NL63 (PCR) Human Metapneumovir PCR Influenza A (RT-PCR) Influenza Type A (PCR) NEGATIVE Influenza B (RT-PCR) Influenza Type B (PCR) NEGATIVE M. pneumoniae (PCR) Parainfluenza 1 (PCR) Parainfluenza 2 (PCR) Parainfluenza 3 (PCR) Parainfluenza 4 (PCR) RSV (PCR) RSV RNA Qual (PCR) NEGATIVE Entero/Rhino (PCR) SARS-CoV-2 RNA (RT-PCR) NEGATIVE 03/17/22 03/17/22 03/17/22 11:49 11:49 12:36 MCV MCH MCHC RDW Plt Count MPV Immature Gran % (Auto) Neut % (Auto) Lymph % (Auto) Gillespie % (Auto) Eos % (Auto) Baso % (Auto) Lymph # (Auto) Gillespie # (Auto) Eos # (Auto) Baso # (Auto) Abs Immat Gran (auto) Absolute Neuts (auto) Absolute Nucleated RBC Nucleated RBC % (auto) D-Dimer High Sensitivty Anion Gap Estim Creat Clear Calc Estimated GFR Random Glucose Lactic Acid 0.7 Calcium Magnesium Total Bilirubin Direct Bilirubin AST ALT Alkaline Phosphatase B-Natriuretic Peptide 90 Total Protein Albumin Procalcitonin 0.08 Urine Color Urine Appearance Urine pH Ur Specific [place] Urine Protein Urine Glucose (UA) Urine Ketones Urine Blood Urine Nitrite Ur Leukocyte Esterase Urine RBC Urine WBC Ur Squamous Epith Cells Urine Bacteria Hyaline Casts Respiratory Panel Bennett Adenovirus (Rapid PCR) B.pert (TEM-PCR) B.parapertussis DNA PCR C. pneumoniae DNA (PCR) Coronavirus OC43 (PCR) Coronavirus HKU1 (PCR) Coronavirus 229E (PCR) Coronavirus NL63 (PCR) Human Metapneumovir PCR Influenza A (RT-PCR) Influenza Type A (PCR) Influenza B (RT-PCR) Influenza Type B (PCR) M. pneumoniae (PCR) Parainfluenza 1 (PCR) Parainfluenza 2 (PCR) Parainfluenza 3 (PCR) Parainfluenza 4 (PCR) RSV (PCR) RSV RNA Qual (PCR) Entero/Rhino (PCR) SARS-CoV-2 RNA (RT-PCR) 03/17/22 03/17/22 03/18/22 16:20 17:46 05:02 MCV 90.3 MCH 28.2 MCHC 31.2 RDW 13.3 Plt Count 230 MPV 12.2 Immature Gran % (Auto) 0.2 Neut % (Auto) 66.6 Lymph % (Auto) 20.0 Gillespie % (Auto) 5.9 Eos % (Auto) 6.8 H Baso % (Auto) 0.5 Lymph # (Auto) 2.5 Gillespie # (Auto) 0.7 Eos # (Auto) 0.8 H Baso # (Auto) 0.1 Abs Immat Gran (auto) 0.03 Absolute Neuts (auto) 8.3 Absolute Nucleated RBC 0.000 Nucleated RBC % (auto) 0.0 D-Dimer High Sensitivty 583 Anion Gap Estim Creat Clear Calc Estimated GFR Random Glucose Lactic Acid Calcium Magnesium Total Bilirubin Direct Bilirubin AST ALT Alkaline Phosphatase B-Natriuretic Peptide Total Protein Albumin Procalcitonin Urine Color Urine Appearance Urine pH Ur Specific [place] Urine Protein Urine Glucose (UA) Urine Ketones Urine Blood Urine Nitrite Ur Leukocyte Esterase Urine RBC Urine WBC Ur Squamous Epith Cells Urine Bacteria Hyaline Casts Respiratory Panel Bennett See Note Adenovirus (Rapid PCR) Not Detected B.pert (TEM-PCR) Not Detected B.parapertussis DNA PCR Not Detected C. pneumoniae DNA (PCR) Not Detected Coronavirus OC43 (PCR) Not Detected Coronavirus HKU1 (PCR) Not Detected Coronavirus 229E (PCR) Not Detected Coronavirus NL63 (PCR) Not Detected Human Metapneumovir PCR Not Detected Influenza A (RT-PCR) Not Detected Influenza Type A (PCR) Influenza B (RT-PCR) Not Detected Influenza Type B (PCR) M. pneumoniae (PCR) Not Detected Parainfluenza 1 (PCR) Not Detected Parainfluenza 2 (PCR) Not Detected Parainfluenza 3 (PCR) Not Detected Parainfluenza 4 (PCR) Not Detected RSV (PCR) Not Detected RSV RNA Qual (PCR) Entero/Rhino (PCR) Not Detected SARS-CoV-2 RNA (RT-PCR) Not Detected 03/18/22 03/18/22 05:02 06:22 MCV MCH MCHC RDW Plt Count MPV Immature Gran % (Auto) Neut % (Auto) Lymph % (Auto) Gillespie % (Auto) Eos % (Auto) Baso % (Auto) Lymph # (Auto) Gillespie # (Auto) Eos # (Auto) Baso # (Auto) Abs Immat Gran (auto) Absolute Neuts (auto) Absolute Nucleated RBC Nucleated RBC % (auto) D-Dimer High Sensitivty Anion Gap 16 Estim Creat Clear Calc 111.9 Estimated GFR > 60 Random Glucose 114 Lactic Acid Calcium 9.7 Magnesium Total Bilirubin Direct Bilirubin AST ALT Alkaline Phosphatase B-Natriuretic Peptide Total Protein Albumin Procalcitonin Urine Color Yellow Urine Appearance Clear Urine pH 6.0 Ur Specific [place] 1.025 Urine Protein 30 (1+) H Urine Glucose (UA) Negative Urine Ketones Negative Urine Blood Negative Urine Nitrite Negative Ur Leukocyte Esterase Negative Urine RBC 0-2 Urine WBC 0-5 Ur Squamous Epith Cells 0-2 Urine Bacteria None Seen Hyaline Casts 0-2 Respiratory Panel Bennett Adenovirus (Rapid PCR) B.pert (TEM-PCR) B.parapertussis DNA PCR C. pneumoniae DNA (PCR) Coronavirus OC43 (PCR) Coronavirus HKU1 (PCR) Coronavirus 229E (PCR) Coronavirus NL63 (PCR) Human Metapneumovir PCR Influenza A (RT-PCR) Influenza Type A (PCR) Influenza B (RT-PCR) Influenza Type B (PCR) M. pneumoniae (PCR) Parainfluenza 1 (PCR) Parainfluenza 2 (PCR) Parainfluenza 3 (PCR) Parainfluenza 4 (PCR) RSV (PCR) RSV RNA Qual (PCR) Entero/Rhino (PCR) SARS-CoV-2 RNA (RT-PCR) Assessment and Plan (1) Acute respiratory failure with hypoxia: Status: Acute (2) Pneumonia: Status: Acute (3) Viral sepsis: Status: Acute Plan 51-year-old female with history of hidradenitis suppurativa who is a current everyday smoker with at least 30 pack year history admitted for acute hypoxemic respiratory failure. # acute hypoxemic respiratory failure secondary to COPD exacerbation Wean O2 down as tolerated Nebulizers Steroids Azithromycin # Viral Sepsis 2/2 COPD exacerbation CXR negative for pneumonia CTA chest showing multifocal peripheral patchy infiltrate each often associated viral disease. COVID-19 test negative, full respiratory panel -ve pending final cultures #Nicotine dependence >30 pack year history Patches for NRT Counseled on cessation # hidradenitis suppurativa Abx as above, hold minocycline Continue metformin #Severe obesity counseled on weight loss efforts DVT prophylaxis Lovenox Patient requires inpatient stay of overnight for management of acute hypoxemic respiratory failure requiring supplemental O2 with further investigation into etiology. Time Spent With Patient Time: Total time managing care of this patient today ____ minutes. Quality Stroke Does the patient have a stroke diagnosis?: No VTE Prior VTE?: No VTE Risk Level:: Medical - moderate - high VTE Device Contraindication: Treatment Not Indicated VTE Drug Contraindication: N/A - Med Ordered
[2022-03-18] MEDS: Azithromycin 500 MG in 0.9 % Sodium Chloride 250 ML 125 MG IV (13:30)
[2022-03-18] MEDS: Enoxaparin Sodium 40 MG/0.4 ML SYRINGE SUBCUT (14:29)
--- NOTE | 2022-03-18 23:22 | PC.NURSE ---
nicotine patch removed from left upper arm
[2022-03-19 04:00] VITALS: BP 146/64; PULSE 98; RESP 16; TEMP 36.4; O2SAT 92
[2022-03-19] MEDS: methylPREDNISolone Sod Succ 40 MG/ML VIAL IVPUSH (06:04)
[2022-03-19 07:34] VITALS: PULSE 89; RESP 18; O2SAT 90
[2022-03-19] MEDS: 0.9 % Sodium Chloride Flush 3 ML SYRINGE IVFLUSH (07:44)
[2022-03-19] MEDS: Benzonatate 100 MG CAPSULE PO (07:44)
[2022-03-19] MEDS: Nicotine 21 MG PATCH.TD24 TRANSDERMA (07:45)
[2022-03-19 08:00] VITALS: BP 156/74; PULSE 92; RESP 18; TEMP 36.6; O2SAT 92
[2022-03-19 11:11] VITALS: PULSE 91; RESP 16; O2SAT 93
--- NOTE | 2022-03-19 11:49 | P.DS_ITS ---
DS: Providers Provider Date of Service: 03/19/22 Date of admission: 03/17/22 14:04 Primary care physician: Ashleigh Garrido MD DS: Diagnosis Discharge Diagnosis (1) Acute respiratory failure with hypoxia: Status: Acute (2) Pneumonia: Status: Acute (3) Viral sepsis: Status: Acute DS: Summary Hospital Course Hospital Course: Admission note HPI 51-year-old female with history of hidradenitis suppurative who is a current everyday smoker with at least 30 pack year history presented to the ED earlier today from [facility] for management of productive cough, subjective fevers, and shortness of breath with hypoxia noted at [facility] with oximetry in the low 70s.? She states symptoms started about 4 days ago and worsened last night and this morning.? At [facility], she was placed on 4 L supplemental O2 and given a dose of prednisone and transferred via EMS to the hospital.? On arrival, patient afebrile, tachycardic to 105 RR 20, hypoxic to 85% on room air.? She was placed on 2.5 L supplemental O2 with improvement in oximetry to 92-95%.? Lab significant for leukocytosis of 12.9.? Renal function, electrolyte levels normal.? BNP 90, procalcitonin 0.08.? Negative for influenza, RSV, COVID-19.? CXR negative for acute cardiopulmoary abnormality.? Treated empirically for suspected pneumonia with IV ceftriaxone, Zithromax, albuterol updraft, and 40 mg IV prednisolone.? She denies any known history of COPD but feels she has been wheezing.? Hospital course The patient was admitted for treatment of acute hypoxic respiratory failure secondary to COPD exacerbation. Responded well to IV steroids, azithromycin and bronchodilator nebulizers as she was weaned off oxygen and became able to ambulate on room air with no reported dyspnea. Strongly advised to quit smoking as nicotine patches were used during the hospital stay. Continue prednisone as prescribed Continue azithromycin Cough medication as needed We advise you to quit smoking completely, nicotine patches provided Time Spent with Patient Time attestation: Total time managing care of this patient today ____ minutes. Discharge coordination time: Greater than 30 minutes Quality: Safe Use of Opioids Does Pt have an Active Cancer Diagnosis on the Problem List?: No Quality: Stroke Does the patient have a stroke diagnosis?: No Physical Exam Vital Signs: Vital Signs: Last Vital Signs Temp 97.9 F 03/19/22 08:00 Pulse 91 03/19/22 11:11 Resp 16 03/19/22 11:11 BP 156/74 H 03/19/22 08:00 Pulse Ox 92 03/19/22 08:00 O2 Del Method 03/19/22 08:00 O2 Flow Rate 2 03/18/22 08:00 BMI result Body Mass Index 37.4 Const: Other: Constitutional : Awake, interactive, not in distress Neck : Normal inspection, Supple Cardiovascular : RRR, no JVP, no lower extremity edema Respiratory : good bilateral air entry, no crackles, wheezes or rhonchi Gastrointestinal: soft, lax, Normal bowel sounds, Non tender Skin : Warm, Dry Neurological : Alert & oriented x3, No focal deficit DS: Data Data Completed and Pending Labs on day of discharge: Preliminary micro results at discharge 03/17/22 12:36 Blood Culture - Preliminary Blood - Venous No growth after 24 hours. 03/17/22 12:16 Blood Culture - Preliminary Blood - Venous No growth after 24 hours. Imaging Chest x-ray: Radiologist's impression: ITS Impressions Chest X-Ray 03/17/22 12:15 IMPRESSION: Unremarkable examination. Chest CTA 03/17/22 18:08 IMPRESSION: 1. No central or large proximal pulmonary emboli are seen. 2. Multifocal peripheral patchy infiltrates which can be seen with Covid 19 disease. VTE: indeterminate. Discharge Plan Discharge Anticipated Discharge Date/Time: 03/19/22 11:45 Patient Disposition: Home, Self-Care Discharge Diagnosis: Hypoxic respiratory failure Pneumonia Referrals: Ashleigh Veras MD [Primary Care Provider] - 1 Week Discharge Medications: New benzonatate 100 mg Capsule 100 mg PO TID Qty: 20 0RF nicotine 21 mg/24 hr Patch 24 Hour 21 mg transdermal DAILY Qty: 30 2RF prednisone 20 mg tablet 40 mg PO DAILY Qty: 8 0RF albuterol sulfate 90 mcg/actuation HFA aerosol inhaler 2 puff inhalation Q6H PRN (Reason: shortness of breath or wheezing) Qty: 8.5 1RF azithromycin 250 mg tablet 250 mg PO DAILY 4 Days Qty: 4 0RF Rx Instructions: start on day 2 of therapy Continued metformin 500 mg tablet 1 tab PO BID minocycline 100 mg capsule 1 cap PO Q12H Discharge Orders: Discharge Order (Routine); Ordered 03/19/22 Ordered By: Juan Jose Lepe Diet: Advance to usual diet Activity on Discharge: As tolerated Stand Alone Forms: Patient Portal Discharge page Care Plan Goals: Read below Health Concerns: Read below Plan of Treatment: Read below Assessment: You were admitted to the hospital for evaluation of difficulty breathing. Found to be in COPD exacerbation requiring oxygen supplement. Treated with IV steroids, nebulizers with good response over the course of hospital stay. Continue prednisone as prescribed Continue azithromycin Cough medication as needed We advise you to quit smoking completely, nicotine patches provided
--- NOTE | 2022-03-19 11:51 | MHC.CM.PN ---
PT TO DC HOME TODAY WITH NO SERVICES VIA SELF TRANSPORT
== END 2022-03-19 12:05 | disposition home or self-care (01) | DRG 720 ==
LOC: HO.ED 12:57 → HO.EDOVER 14:14 → HO.S3 17:33
PROVIDERS: Physician Assistant; Admitting Provider Physician Assistant; Emergency Provider Student in an Organized Health Care Education/Training Program; PCP Internal Medicine; Visit Provider Student in an Organized Health Care Education/Training Program
DX: A41.89 Other specified sepsis (principal); J96.01 Acute respiratory failure with hypoxia; J18.9 Pneumonia, unspecified organism; J44.0 Chronic obstructive pulmonary disease with (acute) lower respiratory infection; J44.1 Chronic obstructive pulmonary disease with (acute) exacerbation; F17.210 Nicotine dependence, cigarettes, uncomplicated; L73.2 Hidradenitis suppurativa; Z20.822 Contact with and (suspected) exposure to COVID-19; Z98.51 Tubal ligation status; Z71.6 Tobacco abuse counseling; Z79.84 Long term (current) use of oral hypoglycemic drugs; Z79.899 Other long term (current) drug therapy; E66.01 Morbid (severe) obesity due to excess calories; Z68.37 Body mass index [BMI] 37.0-37.9, adult
CPT/HCPCS: 0241U; 36415; 71045; 71275; 80048; 80076; 81001; 83605; 83735; 83880; 84145; 85025; 85379; 87040; 87633; 93005; 94640; 99285; J0456; J0696; J1650; J2920; Q9967

== ENCOUNTER → 2022-03-27 10:24 | Outpatient (BNVA) | payer MEDICAID, SELFPAY | PROVIDERS: PCP Internal Medicine; Visit Provider Surgery | DX: N64.89 Other specified disorders of breast (principal) | CPT/HCPCS: 99212 ==

== ENCOUNTER → 2022-04-10 11:28 | Outpatient (BNVA) | payer MEDICAID, SELFPAY | PROVIDERS: PCP Internal Medicine; Referring Provider Internal Medicine; Visit Provider Surgery | DX: N64.89 Other specified disorders of breast (principal) | CPT/HCPCS: 99212 ==

== ENCOUNTER 2023-07-03 10:12 | Outpatient (REF) | payer OTHER, SELFPAY | END 2023-07-03 10:13 | disposition home or self-care (01) | LOC: HO.MAMMO 10:12 | PROVIDERS: PCP Internal Medicine; Visit Provider Internal Medicine | DX: Z13.89 Encounter for screening for other disorder (principal) ==

== ENCOUNTER 2023-08-16 13:30 | Outpatient (REF) | payer OTHER, SELFPAY ==
--- NOTE | ~2023-08-16 | MM_ITS ---
EXAMINATION: MM DIAGNOSTIC DIGITAL BREAST TOMOSYNTHESIS, BILATERAL CLINICAL INFORMATION: History of hidradenitis. Patient complaining of pain and white discharge from left nipple. Prior surgery and left periareolar region. Surgical scar marked by the technologist. COMPARISON: Mammography: 04/14/2021, and 08/11/2018 (baseline). Bilateral breast ultrasound 08/11/2018, and left ultrasound 04/14/2021. TECHNIQUE: Digital breast tomosynthesis is performed in both the craniocaudal and mediolateral oblique views along with computer-aided detection (CAD). Synthesized 2D images are generated from the tomosynthesis. In addition, full-field 3-D left mediolateral view was obtained. FINDINGS: There are scattered areas of fibroglandular density (ACR BI-RADS breast composition Category b). There is a stable intramammary lymph node in the upper outer quadrant right breast, middle one third. There are a few normal-appearing lymph nodes in the bilateral axillary regions. No suspicious microcalcifications. In the left breast, approximately 3:00 axis, there is a 3 mm oval circumscribed mass, anterior one third, which is partially obscured on the CC projection by overlying tissue. This was not present on the most recent exam of 2021. This will will be evaluated with ultrasound. Otherwise, the parenchymal pattern is unchanged from prior exams. No additional masses or areas of architectural distortion. The skin demonstrates minimal thickening in the left periareolar region, similar to prior studies. ULTRASOUND: CLINICAL INFORMATION: As above COMPARISON: 04/14/2021 TECHNIQUE: Targeted sonographic evaluation was performed using a high frequency linear transducer. Attention was given to the left areola and retroareolar region. Selected archived documentation. FINDINGS: LEFT BREAST: There is a mixture of fatty and fibroglandular tissue. No suspicious mass is seen. There is no pathologic acoustic shadowing. There is duct ectasia in the retroareolar region without evidence of filling defect or mass within the ducts. Abnormality at 3:00 appears to be related to a dilated duct. These findings are benign. The areola in the left breast and nipple are unremarkable in appearance. There is no fluid collection or cystic abnormality present. No hyperemia. MM/MM tomosynthesis diagnostic BI IMPRESSION: -No findings suspicious for malignancy in either breast. -Duct ectasia left retroareolar region without evidence of intraductal filling defect or mass. Recommend clinical management. Should nipple discharge continue, MRI would be advised. -No left nipple or areolar abnormalities seen. No fluid collection or abscess. -Stable lymph node in the upper outer right breast. -Otherwise, recommend returning to routine screening mammography to include both breasts. OVERALL ASSESSMENT: Mammography: BI-RADS 2 - Benign Findings Ultrasound: BI-RADS 2 - Benign Findings RECOMMENDATION: 1. Patient should be managed based on the clinical impression. 2. Otherwise, routine annual screening mammography. This patient's information was entered into a reminder system with a target due date for their next mammogram.
== END 2023-08-16 13:31 | disposition home or self-care (01) ==
LOC: HO.MAMMO 13:30
PROVIDERS: PCP Internal Medicine; Visit Provider Internal Medicine
DX: N64.4 Mastodynia (principal)
CPT/HCPCS: 76642; 77062; 77066

== ENCOUNTER → 2023-08-16 13:30 | Outpatient (BNV) | payer OTHER, SELFPAY | PROVIDERS: PCP Internal Medicine; Visit Provider Radiology Diagnostic Radiology | DX: N64.4 Mastodynia (principal); N64.52 Nipple discharge | CPT/HCPCS: 76642; 77062; 77066 ==

== ENCOUNTER 2024-01-27 15:36 | Outpatient (REF) | payer OTHER, SELFPAY ==
[2024-01-27 16:38] LABS: Estimated Average Glucose 126 mg/dL; Total Hemoglobin (HGBA1C) 3952.9541 umol/L
[2024-01-27 17:25] LABS: Cholesterol 193 mg/dL (<200); HDL Cholesterol 34 mg/dL (>40); LDL Cholesterol Calculated 119 mg/dL (<100); Triglycerides 201 mg/dL (<150)
[2024-01-27 17:41] LABS: Free T4 (Free Thyroxine) 1.09 ng/dL (0.71-1.85)
[2024-01-29 10:09] LABS: Thyroid Peroxidase Antibodies 1 IU/mL (<9)
== END 2024-01-27 15:37 | disposition home or self-care (01) ==
LOC: HO.HHCL 15:36
PROVIDERS: Internal Medicine; Visit Provider Optometrist
DX: Z00.00 Encounter for general adult medical examination without abnormal findings (principal); H05.20 Unspecified exophthalmos; Z13.1 Encounter for screening for diabetes mellitus
CPT/HCPCS: 36415; 80061; 82306; 83036; 84439; 84443; 86376

== ENCOUNTER 2024-09-21 08:25 | Outpatient (REF) | payer OTHER, SELFPAY ==
--- OUTSIDE RECORDS SUMMARY | 2024-09-21 08:31 | XMS_ITS | Clinical Summary ---
Author Organization [employer] Address [address] [facility] [place] [address] Care Team Providers Care Regulatory Product Manager Name Role Phone Ashleigh Veras MD Primary Care Provide r Allergies No known active allergies Medications albuterol 108 (90 Base) MCG/ACT inhalerIndicatio ns:SOB (shortness of breath),Smoker,W heezing Inhale 2 puffs every 6 (six) hours if needed for wheezing. 18 g 1 3 Active nicotine polacrilex (Nicotine Mini) 4 MG lozengeIndicatio ns:Smoker Dissolve 1 lozenge (4 mg) in the mouth every 2 (two) hours if needed for smoking cessation. 100 lozenge 1 5 Active phentermine 15 MG capsuleIndicatio ns:Class 2 severe obesity due to excess calories with serious comorbidity and body mass index (BMI) of 36.0 to 36.9 in adult ([facility]) Take 1 capsule (15 mg) by mouth before breakfast. 30 capsule 5 Active Active Problems Problem Noted Date Diagnosed Date Prediabetes 07/07/2024 Assessment & Plan (07/07/2024 4:24 PM EDT): .Today extensive discussion was done about life style modifications I advise healthy diet (low calorie) and cardiovascular exercise Class 2 severe obesity due t o excess calories with serious comorbidity and body mass index (BMI) of 36.0 to 36.9 in adult 07/07/2024 Assessment & Plan (07/07/2024 4:24 PM EDT): Today extensive discussion was done about life style modifications I advise healthy diet (low calorie) and cardiovascular exercise I will start her on phentermine 15mg daily Smoker 06/18/2023 Assessment & Plan (07/07/2024 4:25 PM EDT): Counseling done Assessment & Plan (06/18/2023 4:28 PM EDT): Smoking cessation counseling done Patient will like to quit on her own JOSEPHINE (obstructive sleep apnea) 06/17/2023 Assessment & Plan (06/18/2023 4:28 PM EDT): Prescription for CPAP supplies to be generated Encounter for preventive health examination 06/06 Assessment & Plan (06/18/2023 4:28 PM EDT): See HPI Breast cancer screening by mammogram 06/17/2023 Colon cancer screening 06/17/2023 Diminished vision 06/17/2023 Acne 03/26/2022 Chronic right shoulder pain 03/26/2022 Folliculitis 03/26/2022 Snoring 03/17/2022 Encounters Date Type Department Care Team Description 09/14/2024 Telephone [facility] [address] [place] [phone] Ashleigh Veras MD 08/16/2024 Telephone [facility] [address] [place] [phone] Ashleigh Veras MD 08/09/2024 Telephone [facility] [address] [place] [phone] Ashleigh Veras MD 08/01/2024 Telephone [facility] [address] [place] [phone] Ashleigh Veras MD 07/10/2024 Telephone [facility] [address] [place] [address] [phone] Ashleigh Veras MD Appointment Request 07/07/2024 2:45 PM EDT Office Visit [facility] [address] [place] [phone] Ashleigh Veras MD Breast cancer screening by mammogram (Primary Dx); Smoker; Chronic right shoulder pain; Prediabetes; Class 2 severe obesity due to excess calories with serious comorbidity and body mass index (BMI) of 36.0 to 36.9 in adult ([facility]); JOSEPHINE (obstructive sleep apnea); Dietary counseling; Exercise counseling 07/07/2024 Travel 07/06/2024 Telephone [facility] [address] [place] [address] Ashleigh Veras MD chart prep 06/30/2024 Patient Outreach [facility] [address] [place], [place] [phone] Ashleigh Veras MD Pre-visit Planning (Pre visit planning LVM ) from Last 3 Months Immunizations Immunization Administration Dates Next Due Moderna Covid-19 Vaccine 12+ 04/08/2021,06/07/19 21,04/17/2020 Social History Tobacco Use Types Packs/Day Years Used Date Smoking Tobacco: Every Day Cigarettes Passive Smoke Exposure: Current Smokeless Tobacco: Never Tobacco Cessation:Ready to Q uit: Not Asked; Counseling Given: Not Answered Alcohol Use Standard Drinks/Week Comments Never 0 (1 standard drink = 0.6 oz pur e alcohol) Depression Answer Date Recorded Patient Health Questionnaire-9 Score 0 06/17/2023 Patient Health Questionnaire-9 Score 0 06/17/2023 Last PHQ-9: Questionnaire Data Not on file 0 06/17/2023 Housing Stability Answer Date Recorded What is your housing situation today? I have [place] 06/17/[address] you li ve. Do you have problems with any of the following? None of the above 06/17/2023 Food Insecurity Answer Date Recorded Within the past 12 months, y ou worried that your food would run out before you got money to buy more: Never True 06/17/2023 Within the past 12 months,th e food you bought just didn't last and you didn't have enough money to get more: Never True 01/2024 Transportation Answer Date Recorded In the past 12 months, has l ack of transportation kept you from medical appts, meetings, work or from getting things needed for daily living? No 06/17/2023 Utilities Answer Date Recorded In the past 12 months, has t he electric, gas, oil or water company threatened to shut off services in your home? No 06/17/2023 Depression Answer Date Recorded Patient Health Questionnaire-2 Score 0 06/17/2023 Comments Unknown Sex and Gender Information Value Date Recorded Sex Assigned at Female 01/05/2022 10:16 AM EDT Legal Sex Female 10:16 AM EDT Gender Identity Female 01/05/2022 10:16 AM EDT Sexual Orientation Straight 01/05/2022 10 :16 AM EDT Last Filed Vital Signs Vital Sign Reading Time Taken Comments Blood Pressure 139/74 07/07/2024 2:50 PM EDT Pulse 96 07/07/2024 2:50 PM EDT Temperature 36.4 C (97.6 F) 07/07/2024 2:50 PM EDT Respiratory Rate 12 06/17/2023 1:23 PM EDT Oxygen Saturation 96% 07/07/2024 2:50 PM EDT Inhaled Oxygen Concentration - - Weight 98.9 kg (218 lb 2 oz) 07/07/2024 2:50 PM EDT Height 165.1 cm (5' 5 ) 07/07/2024 2:50 PM EDT Body Mass Index 36.3 07/07/2024 2:50 PM EDT Plan of Treatment Health Maintenance Due Date Last Done Comments CT Colonography 1972 Colonoscopy 1972 FIT 1972 FOBT 1972 Sigmoidoscopy 1972 Disability Screening 1972 Alcohol/Substance Use Screening 1984 Family Planning (PISQ) 10/05/1987 DTaP/Tdap/Td Vaccines (1 - Tdap) 10/05/1991 Hepatitis B Vaccines (1 of 3 - 19+ 3-dose series) 10/05/1991 Pneumococcal Vaccine: 50+ Years (1 of 2 - PCV) 10/05/1991 Pap Smear 1993 Cervical Cancer Screening 2002 HPV/Cotest 2002 Zoster Vaccines (1 of 2) 2022 COVID-19 Vaccine ( - season) 2023 04/08/2021, 06/06/2020, 04/17/2020 Depression Screening 06/16/2024 06/17/2023, 06/17/19 24 SDOH Screening 06/16/2024 06/17/2023 Mammogram 08/15/2024 08/16/2023, 08/06, 04/14/2021, Additional history exists Influenza Vaccine (#1) 2024 Diabetes: Hemoglobin A1C 01/26/2025 01/27/2024, 05/06 Tobacco Screening 07/07/2025 07/07/2024 Colorectal Cancer Screening 07/04/2026 FIT DNA/Cologuard 07/04/2026 07/05/2023 Lipid Panel 01/26/2029 01/27/2024, 05/15/2021 RSV Patients and Patients Aged 60 years or older (1 - 1-dose 75+ series) 10/05/2047 HIV Screening Completed 05/15/2021 Hepatitis C Screening Completed 05/15/2021 HIB Vaccines Aged Out No longer eligi ble based on patient's age to complete this topic HPV Vaccines Aged Out No longer eligi ble based on patient's age to complete this topic Hepatitis A Vaccines Aged Out No long er eligible based on patient's age to complete this topic IPV Vaccines Aged Out No longer eligi ble based on patient's age to complete this topic Meningococcal B Vaccine Aged Out No l onger eligible based on patient's age to complete this topic Meningococcal Vaccine Aged Out No mary ann amado eligible based on patient's age to complete this topic RSV under 20 months Aged Out No longe r eligible based on patient's age to complete this topic Rotavirus Vaccines Aged Out No longer eligible based on patient's age to complete this topic Procedures Procedure Name Priority Date/Time Associated Diagnosis Comments HEMOGLOBIN A1C Routine 01/27/2024 3:39 PM EST Encounter for preventive health examination LIPID PANEL, STANDARD Routine 01/27/2024 3:39 PM EST Encounter for preventive health examination BI MAMMOGRAM DIAGNOSTIC TOMOSYNTHESIS BILATERAL Routine 08/16/2023 2:07 PM EDT LAB COLOGUARD COLON CANCER SCREEN Routine 07/05/2023 3:57 AM EDT Colon cancer screening ZZZ HISTORICAL HEPATITIS C AB W/REFL TO HCV RNA, QN, PCR Routine 05/15/2021 11:20 AM EST HIV 1/2 ANTIGEN/ANTIBODY, FOURTH GENERATION W/RFL Routine 05/15/2021 11:20 AM EST from Last 3 Months or Most Recently Relevant to Health Maintenance Results * Hemoglobin A1c (01/27/2024 3:39 PM EST) Hemoglobin A1c 6.0 <6.0 % [facility] Comment:Hemoglobin A1C Refer ence Range Adults: 4.8 - 6.0 % Non diabetic: < 6.0 % Goal: < 7.0 %Additional Action Suggested: > 8.0 %Note: Hemoglobin A1c results are invalid for patients with abnormal amounts of HbF. Blood transfusions may impact the HbA1c concentration in the patient sample. Estimated Average Glucose 126 mg/dL [facility] Comment:eAG = Estimated ave rage glucose which is %A1C expressed asaverage glucose, using the formula of the R2N-SjssfmfWjdyvvn Glucose study (ADAG), Diabetes Care, Vol.31,#8,Oct. 2007 Blood Venous blood specimen / Unknown 01/27/2024 3:39 PM EST 01/27/2024 4:05 PM EST us Ashleigh Garrido MD LAB BLOOD ORDERABLES Final Result [facility] [address] [place] [address] [phone] * (ABNORMAL) Lipid Panel, Standard (01/27/2024 3:39 PM EST) Triglycerides 201(H) <150 mg/dL [facility] Comment:Desirable Triglyceri de: less than 150 mg/dLBorderline High Triglyceride 150-199 mg/dLHigh Triglyceride: 200-499 mg/dLVery High Triglyceride: greater than or equal to 5OO mg/dL Cholesterol 193 <200 mg/dL [facility] Comment:Desirable Cholestero l: less than 200 mg/dLBorderline High Cholesterol: 200-239 mg/dLHigh Cholesterol: greater than 239 mg/dL LDL Cholesterol Calculated 119(H) <100 mg/dL [facility] Comment:Desirable LDL: less than 100 mg/dLNear Optimal/Above Optimal LDL: 110- 129 mg/dLBorderline High LDL: 130-159 mg/dLHigh LDL: 160-189 mg/dLVery High LDL: greater than or equal to 190 mg/dL HDL Cholesterol 34(L) >40 mg/dL [facility] Comment:Desirable HDL: great er than 40 mg/dL Note: This HDL assay may give artificially low results in patients with liver disease. Blood Venous blood specimen / Unknown 01/27/2024 3:39 PM EST 01/27/2024 4:17 PM EST Ashleigh Garrido MD LAB BLOOD ORDERABLES Final Result Performing Organization Address City/State/[facility] Co de Phone Number [facility] [address] [place] [phone] * BI Mammogram Diagnostic Tomosynthesis Bilateral (08/16/2023 2:07 PM EDT) Anatomical Region Laterality Modality Breast Bilateral Mammography 08/16/2023 2:07 PM EDT Narrative 08/16/2023 3:27 PM EDT [facility] [address] [place] [address] Mammography Report Signed Patient: Anupama Christensen MR#: [id number] : 1970 Acct:[id number] Age/Sex: 52 / F ADM Date: 08/16/23 Loc: HO.MAMMO Attending Dr: Ashleigh Garrido MD Ordering Physician: Ashleigh Veras MD Results: 2Benign Findings Date of Service: 08/16/23 Follow Up: 1 Year From Orig inal Mammogram Procedure(s): MM tomosynthesis diagnostic BI Accession Number(s): [id number] cc: Ashleigh Veras MD EXAMINATION: MM DIAGNOSTIC DIGITAL BREAST TOMOSYNTHESIS, BILATERAL CLINICAL INFORMATION: History of hidradenitis. Patient complaining of pain and white discharge from left nipple. Prior surgery and left periareolar region. Surgical scar marked by the technologist. COMPARISON: Mammography: 04/14/2021, and 08/11/2018 (baseline). Bilateral breast ultrasound 08/11/2018, and left ultrasound 04/14/2021. TECHNIQUE: Digital breast tomosynthesis is performed in both the craniocaudal and mediolateral oblique views along with computer-aided detection (CAD). Synthesized 2D images are generated from the tomosynthesis. In addition, full-field 3-D left mediolateral view was obtained. FINDINGS: There are scattered areas of fibroglandular density (ACR BI-RADS breast composition Category b). There is a stable intramammary lymph node in the upper outer quadrant right breast, middle one third. There are a few normal-appearing lymph nodes in the bilateral axillary regions. No suspicious microcalcifications. In the left breast, approximately 3:00 axis, there is a 3 mm oval circumscribed mass, anterior one third, which is partially obscured on the CC projection by overlying tissue. This was not present on the most recent exam of 2021. This will will be evaluated with ultrasound. Otherwise, the parenchymal pattern is unchanged from prior exams. No additional masses or areas of architectural distortion. The skin demonstrates minimal thickening in the left periareolar region, similar to prior studies. ULTRASOUND: CLINICAL INFORMATION: As above COMPARISON: 04/14/2021 TECHNIQUE: Targeted sonographic evaluation was performed using a high frequency linear transducer. Attention was given to the left areola and retroareolar region. Selected archived documentation. FINDINGS: LEFT BREAST: There is a mixture of fatty and fibroglandular tissue. No suspicious mass is seen. There is no pathologic acoustic shadowing. There is duct ectasia in the retroareolar region without evidence of filling defect or mass within the ducts. Abnormality at 3:00 appears to be related to a dilated duct. These findings are benign. The areola in the left breast and nipple are unremarkable in appearance. There is no fluid collection or cystic abnormality present. No hyperemia. MM/MM tomosynthesis diagnostic BI IMPRESSION: -No findings suspicious for malignancy in either breast. -Duct ectasia left retroareolar region without evidence of intraductal filling defect or mass. Recommend clinical management. Should nipple discharge continue, MRI would be advised. -No left nipple or areolar abnormalities seen. No fluid collection or abscess. -Stable lymph node in the upper outer right breast. -Otherwise, recommend returning to routine screening mammography to include both breasts. OVERALL ASSESSMENT: Mammography: BI-RADS 2 - Benign Findings Ultrasound: BI-RADS 2 - Benign Findings RECOMMENDATION: 1. Patient should be managed based on the clinical impression. 2. Otherwise, routine annual screening mammography. This patient's information was entered into a reminder system with a target due date for their next mammogram. Dictated By: Tez Villavicencio MD Signed By: <Electronically signed by Tez Villavicencio MD in OV> 08/16/23 1523 DD/ 1407 TD/TT: Mathematics Education Professor: Procedure Note Donotuseinterpreter, Image - 08/16/2023 [facility] [address] [place] [address] Mammography Report Signed Patient: Demi Christensen#: [id number] : 1970Acct:[id number] Age/Sex: 52 / FADM Date: 08/16/23 Loc: HO.MAMMO Attending Dr: Ashleigh Garrido MD Ordering Physician: Ashleigh Veras MDResults: 2Benign Findings Date of Service: 08/16/23Follow Up: 1 Year From [facility] Mammogram Procedure(s): MM tomosynthesis diagnostic BI Accession Number(s): [id number] cc: Ashleigh Veras MD EXAMINATION: MM DIAGNOSTIC DIGITAL BREAST TOMOSYNTHESIS, BILATERAL CLINICAL INFORMATION: History of hidradenitis. Patient complaining of pain and white discharge from left nipple. Prior surgery and left periareolar region. Surgical scar marked by the technologist. COMPARISON: Mammography: 04/14/2021, and 08/11/2018 (baseline). Bilateral breast ultrasound 08/11/2018, and left ultrasound 04/14/2021. TECHNIQUE: Digital breast tomosynthesis is performed in both the craniocaudal and mediolateral oblique views along with computer-aided detection (CAD). Synthesized 2D images are generated from the tomosynthesis. In addition, full-field 3-D left mediolateral view was obtained. FINDINGS: There are scattered areas of fibroglandular density (ACR BI-RADS breast composition Category b). There is a stable intramammary lymph node in the upper outer quadrant right breast, middle one third. There are a few normal-appearing lymph nodes in the bilateral axillary regions. No suspicious microcalcifications. In the left breast, approximately 3:00 axis, there is a 3 mm oval circumscribed mass, anterior one third, which is partially obscured on the CC projection by overlying tissue. This was not present on the most recent exam of 2021. This will will be evaluated with ultrasound. Otherwise, the parenchymal pattern is unchanged from prior exams. No additional masses or areas of architectural distortion. The skin demonstrates minimal thickening in the left periareolar region, similar to prior studies. ULTRASOUND: CLINICAL INFORMATION: As above COMPARISON: 04/14/2021 TECHNIQUE: Targeted sonographic evaluation was performed using a high frequency linear transducer. Attention was given to the left areola and retroareolar region. Selected archived documentation. FINDINGS: LEFT BREAST: There is a mixture of fatty and fibroglandular tissue. No suspicious mass is seen. There is no pathologic acoustic shadowing. There is duct ectasia in the retroareolar region without evidence of filling defect or mass within the ducts. Abnormality at 3:00 appears to be related to a dilated duct. These findings are benign. The areola in the left breast and nipple are unremarkable in appearance. There is no fluid collection or cystic abnormality present. No hyperemia. MM/MM tomosynthesis diagnostic BI IMPRESSION: -No findings suspicious for malignancy in either breast. -Duct ectasia left retroareolar region without evidence of intraductal filling defect or mass. Recommend clinical management. Should nipple discharge continue, MRI would be advised. -No left nipple or areolar abnormalities seen. No fluid collection or abscess. -Stable lymph node in the upper outer right breast. -Otherwise, recommend returning to routine screening mammography to include both breasts. OVERALL ASSESSMENT: Mammography: BI-RADS 2 - Benign Findings Ultrasound: BI-RADS 2 - Benign Findings RECOMMENDATION: 1. Patient should be managed based on the clinical impression. 2. Otherwise, routine annual screening mammography. This patient's information was entered into a reminder system with a target due date for their next mammogram. Dictated By: Tez Villavicencio MD Signed By: <Electronically signed by Tez Villavicencio MD in OV> 08/16/23 1523 DD/ 1407 TD/TT: Mathematics Education Professor: JamilaYolie Garrido MD IMG BI PROCEDURES Fin al Result * Cologuard?? colon cancer screening (07/05/2023 3:57 AM EDT) Cologuard Result Negative Negative 07/13/19 6:08 PM EDT [facility] (CLIA #:[id number]) Comment: NEGATIVE TEST RESULT. A negative Cologuard result indicates a low likelihood that a colorectal cancer (CRC) or advanced adenoma (adenomatous polyps with more advanced pre-malignant features) is present. The chance that a person with a negative Cologuard test has a colorectal cancer is less than 1 in 1500 (negative predictive value >99.9%) or has an advanced adenoma is less than 5.3% (negative predictive value 94.7%). These data are based on a prospective cross-sectional study of 10,000 individuals at average risk for colorectal cancer who were screened with both Cologuard and colonoscopy. (Leslie England. et al, N Engl J Med 2014;370(14):0296-3576) The normal value (reference range) for this assay is negative. COLOGUARD RE-SCREENING RECOMMENDATION: Periodic colorectal cancer screening is an important part of preventive healthcare for asymptomatic individuals at average risk for colorectal cancer. Following a negative Cologuard result, the [employer] and U.S. Multi-Society Task Force screening guidelines recommend a Cologuard re-screening interval of 3 years. References: [place] [employer] Guideline for Colorectal Cancer Screening: https://www.cancer.org/cancer/tojlo-cjxouj-rvdbvh/xjwvzexxh-qflibaqao-phfkedo/ac s-rec ommendations.html.; Meir RIZZO, Anant GRACE, Wander DURÁN, Colorectal Cancer Screening: Recommendations for Physicians and Patients from the U.S. Multi-Society Task Force on Colorectal Cancer Screening , Am J Gastroenterology 2017; 112:1421-7620. TEST DESCRIPTION: Composite algorithmic analysis of stool DNA-biomarkers with hemoglobin immunoassay. Quantitative values of individual biomarkers are not reportable and are not associated with individual biomarker result reference ranges. Cologuard is intended for colorectal cancer screening of adults of either sex, 45 years or older, who are at average-risk for colorectal cancer (CRC). Cologuard has been approved for use by the U.S. FDA. The performance of Cologuard was established in a cross sectional study of average-risk adults aged 50-84. Cologuard performance in patients ages 45 to 49 years was estimated by sub-group analysis of near-age groups. Colonoscopies performed for a positive result may find as the most clinically significant lesion: colorectal cancer [4.0%], advanced adenoma (including sessile serrated polyps greater than or equal to 1cm diameter) [20%] or non- advanced adenoma [31%]; or no colorectal neoplasia [45%]. These estimates are derived from a prospective cross-sectional screening study of 10,000 individuals at average risk for colorectal cancer who were screened with both Cologuard and colonoscopy. (Leslie Daugherty al, N Engl J Med 2014;370(14):3706-7539.) Cologuard may produce a false negative or false positive result (no colorectal cancer or precancerous polyp present at colonoscopy follow up). A negative Cologuard test result does not guarantee the absence of CRC or advanced adenoma (pre-cancer). The current Cologuard screening interval is every 3 years. ([employer] and U.S. Multi-Society Task Force). Cologuard performance data in a 10,000 patient pivotal study using colonoscopy as the reference method can be accessed at the following location: www.[employer]/results. Additional description of the Cologuard test process, warnings and precautions can be found at www.[employer].com. Stool specimen (specimen) 07/05/2023 3:57 AM EDT 07/06/2023 10:49 AM EDT us Ashleigh Garrido MD LAB MOLECULAR DIAGNOS TICS ORDERABLES Final Result [facility] (CLIA #:[id number]) [place] [address], * HEPATITIS C AB W/REFL TO HCV RNA, QN, PCR (05/15/2021 11:20 AM EST) HEPATITIS C ANTIBODY NON-REACT SUSAN NON-REACT SUSAN [facility] INDEX 0.03 <1.00 [facility] Comment: HCV antibody was non-reactive. There is no laboratory evidence of HCV infection. In most cases, no further action is required. However, if recent HCV exposure is suspected, a test for HCV RNA (test code 03393) is suggested. For additional information please refer to http://[employer]/faq/QWX85q3 (This link is being provided for informational/ educational purposes only.) 05/15/2021 11:2 0 AM EST Ashleigh Garrido MD HISTORICAL/NON ORDERA BLE LABS Final Result [facility] [address] * HIV 1/2 ANTIGEN/ANTIBODY,FOURTH GENERATION W/RFL (05/15/2021 11:20 AM EST) HIV-1/2 ANTIGEN AND ANTIBODIES, 4TH GENERATION W/ REFLEX NON-REACT SUSAN NON-REACT SUSAN [facility] Comment: HIV-1 antigen and HIV-1/HIV-2 antibodies were not detected. There is no laboratory evidence of HIV infection. PLEASE NOTE: This information has been disclosed to you from records whose confidentiality may be protected by state law. If your state requires such protection, then the state law prohibits you from making any further disclosure of the information without the specific written consent of the person to whom it pertains, or as otherwise permitted by law. A general authorization for the release of medical or other information is NOT sufficient for this purpose. For additional information please refer to http://Web[employer].Scutum/faq/NVR380 (This link is being provided for informational/ educational purposes only.) The performance of this assay has not been clinically validated in patients less than 2 years old. 05/15/2021 11:2 0 AM EST Ashleigh Garrido MD LAB BLOOD ORDERABLES Final Result [facility] [facility] [address] [place] [address], from Last 3 Months or Most Recently Relevant to Health Maintenance Insurance [facility] , [address] [place] [address] Care Teams Regulatory Product Manager Relationship Specialty Start Date End Date Ashleigh Veras MD [address] [place] [id number] PCP - General Family Medicine 07/29/18
== END 2024-09-21 08:26 | disposition home or self-care (01) ==
LOC: HO.MAMMO 08:25
PROVIDERS: PCP Internal Medicine; Visit Provider Internal Medicine
DX: Z12.31 Encounter for screening mammogram for malignant neoplasm of breast (principal)
CPT/HCPCS: 77063; 77067

== ENCOUNTER → 2024-09-21 08:30 | Outpatient (BNV) | payer OTHER, SELFPAY | PROVIDERS: PCP Internal Medicine; Visit Provider Internal Medicine | DX: Z12.31 Encounter for screening mammogram for malignant neoplasm of breast (principal) | CPT/HCPCS: 77063; 77067 ==